=== PATIENT | male | born 1950 | race Caucasian/White ===

== ENCOUNTER 2020-05-26 10:35 | Outpatient (REF) | payer MEDICARE, SELFPAY ==
[2020-05-26 14:40] LABS: Glucose Urine UA >=1000 MG/DL (NEG); Leukocyte Esterase Urine NEG (NEG); Nitrite Urine NEG (NEG); PH 5.5 (5.0-8.0); Urine Blood NEG (NEG); Urine Ketones NEG (NEG); Urine Protein NEG (NEG-TRACE)
[2020-05-26 14:42] LABS: Appearance Urine CLEAR; Color Urine STRAW
[2020-05-26 14:50] LABS: RBC Urine 0 /HPF (0); WBC Urine 0 /HPF (0-4)
[2020-05-26 15:25] LABS: Alanine Aminotransferase 63 U/L (0-40); Albumin Level 4.3 g/dL (3.5-5.0); Alkaline Phosphatase 109 U/L (39-117); Anion Gap 19 (12-20); Aspartate Amino Transferase 47 U/L (5-37); Bilirubin Total 0.7 mg/dL (0.0-1.0); Blood Urea Nitrogen 24 mg/dL (9-16); Calcium 8.9 mg/dL (8.4-10.2); Carbon Dioxide 22 mmol/L (22-29); Chloride 104 mmol/L (96-108); Estimated Glomerular Filt Rate 53; Glucose Random 212 mg/dL (60-115); Potassium 3.7 mmol/l (3.3-5.1); Sodium 141 mmol/L (135-145)
[2020-05-26 15:30] LABS: Creatinine Urine 12.24 mg/dL; Microalbum/Creatinine Ratio Ur 473.8 ug/mg cr
== END 2020-05-26 10:36 | disposition home or self-care (01) ==
LOC: HO.HMGCLDS 10:35
PROVIDERS: PCP Internal Medicine; Visit Provider Internal Medicine
DX: E11.65 Type 2 diabetes mellitus with hyperglycemia (principal)
CPT/HCPCS: 80053; 81001; 82043

== ENCOUNTER 2020-09-02 09:31 | Outpatient (REF) | payer MEDICARE, SELFPAY ==
[2020-09-02 10:46] LABS: Glucose Urine UA >=1000 MG/DL (NEG); Leukocyte Esterase Urine NEG (NEG); Nitrite Urine NEG (NEG); Urine Blood TRACE (NEG); Urine Ketones NEG (NEG); Urine Protein 1+ MG/DL (NEG-TRACE)
[2020-09-02 10:47] LABS: Appearance Urine CLEAR; Color Urine YELLOW
[2020-09-02 10:55] LABS: MANUAL DIFF FLAG NO
[2020-09-02 10:57] LABS: Basophils Absolute Auto 0.1 X10*3/uL (0.0-0.2); Basophils Percent Auto 0.9 % (0-2); Eosinophils Absolute Auto 0.3 X10*3/uL (0.0-0.4); Eosinophils Percent Auto 4.6 % (0-4); Hematocrit 48.6 % (42-52); Hemoglobin 16.6 g/dl (14.0-18.0); Imm Gran Abs Auto 0.02 X10*3/uL (0.00-0.03); Imm Gran Pct Auto 0.3 % (0.0-0.4); Lymphocytes Percent Auto 29.3 % (20-40); Mean Corpuscular HGB Conc 34.2 g/dl (31.0-36.0); Mean Corpuscular Hemoglobin 30.5 pg (27.0-33.0); Mean Corpuscular Volume 89.3 fL (80-98); Mean Platelet Volume 11.9 fL (9.4-12.4); Monocytes Absolute Auto 0.6 X10*3/uL (0.1-1.2); Monocytes Percent Auto 8.7 % (2-11); Neutrophils Absolute Auto 3.9 X10*3/uL (2.0-8.3); Neutrophils Percent Auto 56.2 % (45-73); Platelet Count 135 X10*3/uL (160-400); Red Blood Count 5.44 X10*6/uL (4.60-5.80); Red Cell Distribution Width 13.4 % (11.0-16.0); White Blood Count 6.9 X10*3/uL (4.8-10.8)
[2020-09-02 11:01] LABS: RBC Urine 0-2 /HPF (0); WBC Urine 0-2 /HPF (0-4)
[2020-09-02 11:26] LABS: Estimated Average Glucose 177 mg/dL; Hemoglobin A1c % 7.8 %
[2020-09-02 11:32] LABS: Alanine Aminotransferase 53 U/L (0-40); Albumin Level 4.1 g/dL (3.5-5.0); Alkaline Phosphatase 101 U/L (39-117); Anion Gap 13 (12-20); Aspartate Amino Transferase 31 U/L (5-37); Bilirubin Total 0.8 mg/dL (0.0-1.0); Blood Urea Nitrogen 26 mg/dL (9-16); Calcium 9.1 mg/dL (8.4-10.2); Carbon Dioxide 23 mmol/L (22-29); Chloride 108 mmol/L (96-108); Cholesterol 154 mg/dL; Estimated Glomerular Filt Rate 56; Glucose Fasting 155 mg/dL (60-99); HDL Cholesterol 29 mg/dL; LDL Cholesterol Calculated 73 mg/dl; Potassium 4.1 mmol/L (3.3-5.1); Sodium 140 mmol/L (135-145); Total Protein 6.3 g/dL (6.5-8.0); Triglycerides 260 mg/dL
[2020-09-02 11:41] LABS: Creatinine Urine 82.85 mg/dL; Microalbum/Creatinine Ratio Ur 561.2 ug/mg cr
== END 2020-09-02 09:32 | disposition home or self-care (01) ==
LOC: HO.LAB 09:31
PROVIDERS: PCP Internal Medicine; Visit Provider Internal Medicine
DX: E11.65 Type 2 diabetes mellitus with hyperglycemia (principal)
CPT/HCPCS: 36415; 80053; 80061; 81001; 82043; 83036; 85025

== ENCOUNTER 2021-11-17 07:26 | Outpatient (REF) | payer MEDICARE, SELFPAY ==
[2021-11-17 11:04] LABS: MANUAL DIFF FLAG NO
[2021-11-17 11:21] LABS: Basophils Absolute Auto 0.1 X10*3/uL (0.0-0.2); Basophils Percent Auto 0.8 % (0-2); Eosinophils Absolute Auto 0.3 X10*3/uL (0.0-0.4); Hematocrit 49.1 % (42.0-52.0); Hemoglobin 15.9 g/dl (14.0-18.0); Imm Gran Abs Auto 0.01 X10*3/uL (0.00-0.03); Imm Gran Pct Auto 0.1 % (0.0-0.4); Lymphocytes Absolute Auto 1.4 X10*3/uL (1.2-4.9); Lymphocytes Percent Auto 20.4 % (20-40); Mean Corpuscular HGB Conc 32.4 g/dl (31.0-36.0); Mean Corpuscular Hemoglobin 29.9 pg (27.0-33.0); Mean Corpuscular Volume 92.5 fL (80.0-98.0); Mean Platelet Volume 12.8 fL (9.4-12.4); Monocytes Absolute Auto 0.6 X10*3/uL (0.1-1.2); Monocytes Percent Auto 9.1 % (2-11); Neutrophils Absolute Auto 4.6 x10*3/uL (2.0-8.3); Neutrophils Percent Auto 65.6 % (45-73); Platelet Count 115 X10*3/uL (160-400); Red Blood Count 5.31 X10*6/uL (4.60-5.80); Red Cell Distribution Width 14.8 % (11.0-16.0); White Blood Count 7.1 X10*3/uL (4.8-10.8)
[2021-11-17 11:34] LABS: Alanine Aminotransferase 46 U/L (0-40); Albumin Level 4.1 g/dL (3.5-5.0); Alkaline Phosphatase 87 U/L (39-117); Anion Gap 13 (12-20); Aspartate Amino Transferase 32 U/L (5-37); Bilirubin Total 0.9 mg/dL (0.0-1.0); Blood Urea Nitrogen 22 mg/dL (9-16); Calcium 9.7 mg/dL (8.4-10.2); Carbon Dioxide 28 mmol/L (22-29); Chloride 105 mmol/L (96-108); Cholesterol 159 mg/dL; Estimated Glomerular Filt Rate 52; Glucose Fasting 156 mg/dL (60-99); HDL Cholesterol 34 mg/dL; LDL Cholesterol Calculated 74 mg/dl; Potassium 4.1 mmol/L (3.3-5.1); Sodium 142 mmol/L (135-145); Total Protein 6.7 g/dL (6.5-8.0); Triglycerides 255 mg/dL
[2021-11-17 11:47] LABS: Creatinine Urine 12.99 mg/dL; Microalbum/Creatinine Ratio Ur 477.2 ug/mg cr
[2021-11-17 11:47] LABS: Estimated Average Glucose 154 mg/dL
[2021-11-17 11:57] LABS: Prostate Specific Antigen 0.88 ng/mL (<0.05-4.0); Thyroid Stimulating Hormone 3.41 uIU/mL (0.32-4.0); Vitamin D 25-OH Total 33.6 ng/mL (>30)
== END 2021-11-17 07:27 | disposition home or self-care (01) ==
LOC: HO.HMGCLDS 07:26
PROVIDERS: Visit Provider Internal Medicine
DX: E11.65 Type 2 diabetes mellitus with hyperglycemia (principal); I25.10 Atherosclerotic heart disease of native coronary artery without angina pectoris; I50.9 Heart failure, unspecified; I48.11 Longstanding persistent atrial fibrillation; Z12.5 Encounter for screening for malignant neoplasm of prostate
CPT/HCPCS: 36415; 80053; 80061; 82043; 82306; 83036; 84153; 84443; 85025

== ENCOUNTER 2022-06-21 08:01 | Outpatient (REF) | payer MEDICARE, SELFPAY ==
[2022-06-21 11:23] LABS: MANUAL DIFF FLAG NO
[2022-06-21 11:34] LABS: Appearance Urine Clear; Color Urine Yellow; Glucose Urine UA >=1000 mg/dL (Negative); Leukocyte Esterase Urine Negative (Negative); Nitrite Urine Negative (Negative); PH 6.5 (5.0-9.0); Specific Gravity - Urine 1.015 (1.005-1.025); UMIC TRIGGER UA YES; Urine Blood Negative (Negative); Urine Ketones Negative (Negative); Urine Protein 30 (1+) mg/dL (Neg-Trace)
[2022-06-21 11:35] LABS: Basophils Absolute Auto 0.1 X10*3/uL (0.0-0.2); Basophils Percent Auto 1.3 % (0-2); Eosinophils Absolute Auto 0.3 X10*3/uL (0.0-0.4); Eosinophils Percent Auto 3.7 % (0-4); Hematocrit 50.6 % (42.0-52.0); Hemoglobin 16.7 g/dl (14.0-18.0); Imm Gran Abs Auto 0.01 X10*3/uL (0.00-0.03); Imm Gran Pct Auto 0.1 % (0.0-0.4); Lymphocytes Absolute Auto 1.9 X10*3/uL (1.2-4.9); Lymphocytes Percent Auto 26.4 % (20-40); Mean Corpuscular Hemoglobin 30.1 pg (27.0-33.0); Mean Corpuscular Volume 91.3 fL (80.0-98.0); Mean Platelet Volume 12.6 fL (9.4-12.4); Monocytes Absolute Auto 0.6 X10*3/uL (0.1-1.2); Monocytes Percent Auto 8.3 % (2-11); Neutrophils Absolute Auto 4.2 x10*3/uL (2.0-8.3); Neutrophils Percent Auto 60.2 % (45-73); Platelet Count 143 X10*3/uL (160-400); Red Blood Count 5.54 X10*6/uL (4.60-5.80); Red Cell Distribution Width 14.1 % (11.0-16.0)
[2022-06-21 11:40] LABS: Bacteria Urine None Seen (None Seen); Hyaline Casts Urine 0-2 /LPF (0-2); RBC Urine 0-2 /HPF (0-2); Squamous Epithelial Cell Urine 0-2 /HPF (0-2); WBC Urine 0-5 /HPF (0-5)
[2022-06-21 11:41] LABS: Estimated Average Glucose 166 mg/dL; Hemoglobin A1c % 7.4 %
[2022-06-21 12:32] LABS: Alanine Aminotransferase 47 U/L (0-40); Albumin Level 4.3 g/dL (3.5-5.0); Anion Gap 13 (12-20); Aspartate Amino Transferase 33 U/L (5-37); Bilirubin Total 0.9 mg/dL (0.0-1.0); Blood Urea Nitrogen 27 mg/dL (9-16); Calcium 9.6 mg/dL (8.4-10.2); Carbon Dioxide 25 mmol/L (22-29); Chloride 107 mmol/L (96-108); Cholesterol 159 mg/dL; Estimated Glomerular Filt Rate 48; Glucose Fasting 170 mg/dL (60-99); HDL Cholesterol 32 mg/dL; LDL Cholesterol Calculated 73 mg/dl; Potassium 4.1 mmol/L (3.3-5.1); Sodium 141 mmol/L (135-145); Total Protein 6.7 g/dL (6.5-8.0); Triglycerides 273 mg/dL
[2022-06-21 12:39] LABS: Microalbum/Creatinine Ratio Ur 381.8 ug/mg cr
[2022-06-21 12:42] LABS: Alkaline Phosphatase 95 U/L (39-117)
== END 2022-06-21 08:02 | disposition home or self-care (01) ==
LOC: HO.HMGCLDS 08:01
PROVIDERS: PCP Internal Medicine; Visit Provider Internal Medicine
DX: E11.65 Type 2 diabetes mellitus with hyperglycemia (principal); I50.9 Heart failure, unspecified; I48.11 Longstanding persistent atrial fibrillation; I25.10 Atherosclerotic heart disease of native coronary artery without angina pectoris
CPT/HCPCS: 36415; 80053; 80061; 81001; 82043; 83036; 85025

== ENCOUNTER 2022-12-18 08:10 | Outpatient (REF) | payer MEDICARE, SELFPAY ==
[2022-12-18 11:15] LABS: MANUAL DIFF FLAG NO
[2022-12-18 11:28] LABS: Estimated Average Glucose 157 mg/dL; Hemoglobin A1c % 7.1 %
[2022-12-18 11:30] LABS: Appearance Urine Clear; Color Urine Yellow; Glucose Urine UA >=1000 mg/dL (Negative); Leukocyte Esterase Urine Negative (Negative); Nitrite Urine Negative (Negative); PH 5.5 (5.0-9.0); Specific Gravity - Urine 1.025 (1.005-1.025); UMIC TRIGGER UA YES; Urine Blood Trace (Negative); Urine Ketones Negative (Negative); Urine Protein 100 (2+) mg/dL (Neg-Trace)
[2022-12-18 11:33] LABS: Basophils Absolute Auto 0.1 X10*3/uL (0.0-0.2); Eosinophils Absolute Auto 0.3 X10*3/uL (0.0-0.4); Eosinophils Percent Auto 3.8 % (0-4); Hematocrit 50.9 % (42.0-52.0); Hemoglobin 16.6 g/dl (14.0-18.0); Imm Gran Abs Auto 0.02 X10*3/uL (0.00-0.03); Imm Gran Pct Auto 0.3 % (0.0-0.4); Lymphocytes Absolute Auto 1.6 X10*3/uL (1.2-4.9); Lymphocytes Percent Auto 23.2 % (20-40); Mean Corpuscular HGB Conc 32.6 g/dl (31.0-36.0); Mean Corpuscular Hemoglobin 30.4 pg (27.0-33.0); Mean Corpuscular Volume 93.2 fL (80.0-98.0); Mean Platelet Volume 12.8 fL (9.4-12.4); Monocytes Absolute Auto 0.6 X10*3/uL (0.1-1.2); Monocytes Percent Auto 8.4 % (2-11); Neutrophils Absolute Auto 4.4 x10*3/uL (2.0-8.3); Neutrophils Percent Auto 63.3 % (45-73); Platelet Count 118 X10*3/uL (160-400); Red Blood Count 5.46 X10*6/uL (4.60-5.80); Red Cell Distribution Width 14.7 % (11.0-16.0)
[2022-12-18 11:36] LABS: Bacteria Urine None Seen (None Seen); Hyaline Casts Urine 0-2 /LPF (0-2); RBC Urine 0-2 /HPF (0-2); Squamous Epithelial Cell Urine 0-2 /HPF (0-2); WBC Urine 0-5 /HPF (0-5)
[2022-12-18 12:03] LABS: Alanine Aminotransferase 41 U/L (0-40); Albumin Level 4.1 g/dL (3.5-5.0); Alkaline Phosphatase 92 U/L (39-117); Anion Gap 11 (12-20); Aspartate Amino Transferase 31 U/L (5-37); Bilirubin Total 0.9 mg/dL (0.0-1.0); Blood Urea Nitrogen 30 mg/dL (9-16); Calcium 9.7 mg/dL (8.4-10.2); Carbon Dioxide 31 mmol/L (22-29); Chloride 107 mmol/L (96-108); Cholesterol 154 mg/dL; Estimated Glomerular Filt Rate 52; Glucose Fasting 160 mg/dL (60-99); HDL Cholesterol 34 mg/dL; LDL Cholesterol Calculated 68 mg/dl; Potassium 4.7 mmol/L (3.3-5.1); Sodium 144 mmol/L (135-145); Total Protein 6.8 g/dL (6.5-8.0); Triglycerides 264 mg/dL
[2022-12-18 12:14] LABS: Creatinine Urine 79.04 mg/dL; Microalbum/Creatinine Ratio Ur 598.4 ug/mg cr
== END 2022-12-18 08:11 | disposition home or self-care (01) ==
LOC: HO.HMGCLDS 08:10
PROVIDERS: PCP Internal Medicine; Visit Provider Internal Medicine
DX: E11.65 Type 2 diabetes mellitus with hyperglycemia (principal); I25.10 Atherosclerotic heart disease of native coronary artery without angina pectoris; I50.9 Heart failure, unspecified; I48.11 Longstanding persistent atrial fibrillation
CPT/HCPCS: 36415; 80053; 80061; 81001; 82043; 83036; 85025

== ENCOUNTER 2023-03-30 08:28 | Outpatient (REF) | payer MEDICARE, SELFPAY ==
[2023-03-30 11:14] LABS: MANUAL DIFF FLAG NO
[2023-03-30 11:29] LABS: Appearance Urine Clear; Color Urine Yellow; Glucose Urine UA >=1000 mg/dL (Negative); Leukocyte Esterase Urine Negative (Negative); Nitrite Urine Negative (Negative); Specific Gravity - Urine 1.025 (1.005-1.025); UMIC TRIGGER UA YES; Urine Blood Trace (Negative); Urine Ketones Negative (Negative); Urine Protein 300 (3+) mg/dL (Neg-Trace)
[2023-03-30 11:33] LABS: Bacteria Urine None Seen (None Seen); Hyaline Casts Urine 0-2 /LPF (0-2); RBC Urine 0-2 /HPF (0-2); Squamous Epithelial Cell Urine 0-2 /HPF (0-2); WBC Urine 0-5 /HPF (0-5)
[2023-03-30 11:42] LABS: Basophils Percent Auto 0.5 % (0-2); Eosinophils Absolute Auto 0.6 X10*3/uL (0.0-0.4); Eosinophils Percent Auto 6.5 % (0-4); Hematocrit 50.8 % (42.0-52.0); Hemoglobin 16.7 g/dl (14.0-18.0); Imm Gran Abs Auto 0.02 X10*3/uL (0.00-0.03); Imm Gran Pct Auto 0.2 % (0.0-0.4); Lymphocytes Absolute Auto 1.2 X10*3/uL (1.2-4.9); Lymphocytes Percent Auto 13.6 % (20-40); Mean Corpuscular HGB Conc 32.9 g/dl (31.0-36.0); Mean Corpuscular Hemoglobin 30.7 pg (27.0-33.0); Mean Corpuscular Volume 93.4 fL (80.0-98.0); Mean Platelet Volume 12.9 fL (9.4-12.4); Monocytes Absolute Auto 0.8 X10*3/uL (0.1-1.2); Monocytes Percent Auto 8.8 % (2-11); Neutrophils Absolute Auto 6.3 x10*3/uL (2.0-8.3); Neutrophils Percent Auto 70.4 % (45-73); Platelet Count 120 X10*3/uL (160-400); Red Blood Count 5.44 X10*6/uL (4.60-5.80); Red Cell Distribution Width 14.8 % (11.0-16.0); White Blood Count 8.9 X10*3/uL (4.8-10.8)
[2023-03-30 12:08] LABS: Alanine Aminotransferase 26 U/L (0-40); Albumin Level 4.2 g/dL (3.5-5.0); Alkaline Phosphatase 94 U/L (39-117); Anion Gap 13 (12-20); Aspartate Amino Transferase 26 U/L (5-37); Bilirubin Total 0.8 mg/dL (0.0-1.0); Blood Urea Nitrogen 21 mg/dL (9-16); Carbon Dioxide 26 mmol/L (22-29); Chloride 107 mmol/L (96-108); Estimated Glomerular Filt Rate > 60; Glucose Fasting 125 mg/dL (60-99); Potassium 4.2 mmol/L (3.3-5.1); Sodium 142 mmol/L (135-145)
[2023-03-30 12:26] LABS: Estimated Average Glucose 123 mg/dL; Hemoglobin A1c % 5.9 % (<6.0)
[2023-03-30 13:21] LABS: Creatinine Urine 94.44 mg/dL; Microalbum/Creatinine Ratio Ur 934.9 ug/mg cr (<30)
== END 2023-03-30 08:29 | disposition home or self-care (01) ==
LOC: HO.HMGCLDS 08:28
PROVIDERS: PCP Internal Medicine; Visit Provider Internal Medicine
DX: E11.29 Type 2 diabetes mellitus with other diabetic kidney complication (principal); I50.9 Heart failure, unspecified; I25.10 Atherosclerotic heart disease of native coronary artery without angina pectoris; I48.11 Longstanding persistent atrial fibrillation
CPT/HCPCS: 36415; 80053; 81001; 82043; 82570; 83036; 85025

== ENCOUNTER 2024-01-22 08:01 | Outpatient (REF) | payer MEDICARE, SELFPAY ==
[2024-01-22 10:10] LABS: MANUAL DIFF FLAG NO
[2024-01-22 10:15] LABS: Appearance Urine Clear; Color Urine Yellow; Glucose Urine UA >=1000 mg/dL (Negative); Leukocyte Esterase Urine Negative (Negative); Nitrite Urine Negative (Negative); PH 6.5 (5.0-9.0); Specific Gravity - Urine 1.015 (1.005-1.025); UMIC TRIGGER UA YES; Urine Blood Negative (Negative); Urine Ketones Negative (Negative); Urine Protein Trace mg/dL (Neg-Trace)
[2024-01-22 10:21] LABS: Bacteria Urine None Seen (None Seen); Hyaline Casts Urine 0-2 /LPF (0-2); RBC Urine 0-2 /HPF (0-2); Squamous Epithelial Cell Urine 0-2 /HPF (0-2); WBC Urine 0-5 /HPF (0-5)
[2024-01-22 10:23] LABS: Basophils Absolute Auto 0.1 X10*3/uL (0.0-0.2); Basophils Percent Auto 0.8 % (0-2); Eosinophils Absolute Auto 0.4 X10*3/uL (0.0-0.4); Eosinophils Percent Auto 4.7 % (0-4); Hematocrit 48.3 % (42.0-52.0); Hemoglobin 16.1 g/dl (14.0-18.0); Imm Gran Abs Auto 0.03 X10*3/uL (0.00-0.03); Imm Gran Pct Auto 0.4 % (0.0-0.4); Lymphocytes Absolute Auto 1.7 X10*3/uL (1.2-4.9); Lymphocytes Percent Auto 22.4 % (20-40); Mean Corpuscular HGB Conc 33.3 g/dl (31.0-36.0); Mean Corpuscular Hemoglobin 30.5 pg (27.0-33.0); Mean Corpuscular Volume 91.5 fL (80.0-98.0); Mean Platelet Volume 12.6 fL (9.4-12.4); Monocytes Absolute Auto 0.6 X10*3/uL (0.1-1.2); Monocytes Percent Auto 7.9 % (2-11); Neutrophils Absolute Auto 4.7 x10*3/uL (2.0-8.3); Neutrophils Percent Auto 63.8 % (45-73); Platelet Count 139 X10*3/uL (160-400); Red Blood Count 5.28 X10*6/uL (4.60-5.80); Red Cell Distribution Width 14.8 % (11.0-16.0); White Blood Count 7.4 X10*3/uL (4.8-10.8)
[2024-01-22 10:35] LABS: Estimated Average Glucose 137 mg/dL; Hemoglobin A1c % 6.4 % (<6.0)
[2024-01-22 11:02] LABS: Creatinine Urine 32.71 mg/dL; Microalbum/Creatinine Ratio Ur 434.1 ug/mg cr (<30)
[2024-01-22 11:12] LABS: Alanine Aminotransferase 25 U/L (0-40); Albumin Level 4.2 g/dL (3.5-5.0); Alkaline Phosphatase 91 U/L (39-117); Anion Gap 12 (12-20); Aspartate Amino Transferase 23 U/L (5-37); Bilirubin Total 0.9 mg/dL (0.0-1.0); Blood Urea Nitrogen 21 mg/dL (9-16); Calcium 10.2 mg/dL (8.4-10.2); Carbon Dioxide 27 mmol/L (22-29); Chloride 108 mmol/L (96-108); Cholesterol 136 mg/dL (<200); Estimated Glomerular Filt Rate 50; Glucose Fasting 133 mg/dL (60-99); HDL Cholesterol 30 mg/dL (>40); LDL Cholesterol Calculated 73 mg/dL (<100); Sodium 143 mmol/L (135-145); Thyroid Stimulating Hormone 1.71 uIU/mL (0.32-4.0); Total Protein 7.1 g/dL (6.5-8.0); Triglycerides 169 mg/dL (<150)
[2024-01-23 09:13] LABS: Lyme Abs Screen <0.90 index
== END 2024-01-22 08:02 | disposition home or self-care (01) ==
LOC: HO.HMGCLDS 08:01
PROVIDERS: PCP Internal Medicine; Visit Provider Internal Medicine
DX: I50.9 Heart failure, unspecified (principal); E11.65 Type 2 diabetes mellitus with hyperglycemia; I25.10 Atherosclerotic heart disease of native coronary artery without angina pectoris; I48.11 Longstanding persistent atrial fibrillation
CPT/HCPCS: 36415; 80053; 80061; 81001; 82043; 82570; 83036; 84443; 85025; 86617; 86618

== ENCOUNTER 2024-10-01 09:45 | Outpatient (AMB) | payer MEDICARE, MEDICAID, SELFPAY ==
--- NOTE | 2024-10-01 09:43 | A.OFFPC_ITS ---
Vital Signs 10/01/24 09:53 Height 5 ft 6.25 in Weight 230 lb BMI 36.8 BP 134/62 Blood Pressure Location Rt brachial Respiration 18 Pulse 83 Pulse Source Pulse Oximeter Temp 97.1 F Temp Source Temporal Artery Scan Pulse Oximetry (%) 99 Oxygen Delivery Method Room Air Intake Visit Reasons: 6 month follow up Allergies No Known Allergies Allergy (Verified 10/01/24 10:41) Medication List - Last Reconciled 10/01/24 by Ronna Casey PA-C allopurinol 300 mg PO DAILY apixaban (Eliquis) 5 mg PO BID aspirin 81 mg PO DAILY betamethasone dipropionate 0.05% 1 appl topical DAILY PRN dulaglutide (Trulicity) 4.5 mg (0.5 mL) subcut QWEEK empagliflozin (Jardiance) 25 mg PO DAILY furosemide 80 mg PO DAILY gabapentin 600 mg (2 x 300 mg) PO TID 90 days losartan 100 mg PO DAILY metoprolol tartrate 100 mg PO DAILY nitroglycerin 0.4 mg sublingual Q5M PRN pravastatin 80 mg PO DAILY [facility] Medical History (Updated 10/01/24 @ 10:49 by Ronna Casey PA-C) Restless leg syndrome Severe obesity with body mass index (BMI) of 36.0 to 36.9 with serious comorbidity Follow-up exam, 3-6 months since previous exam History of pneumonia Hypotestosteronism Gout Coronary artery disease Obstructive sleep apnea Hypertension Mild hypercholesterolemia Type 2 diabetes mellitus with hemoglobin A1c goal of less than 7.0% Atrial fibrillation CHF (congestive heart failure) Surgical History History of colonoscopy (~11/2019) History of coronary artery bypass graft Physical exam (Primary Care) Vital Signs: Last Vital Signs Temp 97.1 F 10/01/24 09:53 BP 134/62 10/01/24 09:53 Care Plan Goal for BP management: <130/80 at goal BMI result Body Mass Index 36.8 BMI Assessment/Plan discussion: High BMI High, discussed plan: lifestyle, weight reduction, dietary, physical activity and alcohol moderation Coding Level of Care Code New Pt Level 4 (59962) Complex EM visit Add On G2211 Diagnoses Follow-up exam, 3-6 months since previous exam Z09 Gout M10.9 Coronary artery disease I25.10 Obstructive sleep apnea G47.33 Hypotestosteronism E34.9 Hypertension I10 Mild hypercholesterolemia E78.00 Type 2 diabetes mellitus with hemoglobin A1c goal of less than 7.0% E11.9 Atrial fibrillation I48.91 CHF (congestive heart failure) I50.9 Severe obesity with body mass index (BMI) of 36.0 to 36.9 with serious comorbidity E66.01; Z68.36 Restless leg syndrome G25.81 Assessment & Plan Assessment & Plan (1) Follow-up exam, 3-6 months since previous exam: Code(s): Z09 - Encounter for follow-up examination after completed treatment for conditions other than malignant neoplasm Category: Medical (2) Gout: Code(s): M10.9 - Gout, unspecified Category: Medical Plan: Patient currently on allopurinol 300 mg daily. Denies any recent flares. Condition is chronic and stable continue to monitor (3) Coronary artery disease: Code(s): I25.10 - Atherosclerotic heart disease of [place] coronary artery without angina pectoris Category: Medical Plan: Status post CABG at [facility] over 20 years. Has not followed up since then. Will refer back to [facility] Dr. Jarrell Batista. Patient currently on furosemide 80 mg daily, Eliquis 5 mg p.o. b.i.d., aspirin 81 mg daily, losartan 100 mg daily, metoprolol 100 mg daily, nitroglycerin 0.4 mg subQ every 5 minutes prn, pravastatin 80 mg daily. Condition is chronic and stable continue to monitor. (4) Obstructive sleep apnea: Comment: On nasal CPAP Code(s): G47.33 - Obstructive sleep apnea (adult) (pediatric) Category: Medical Plan: Condition is chronic and stable continue to monitor. (5) Hypotestosteronism: Code(s): E34.9 - Endocrine disorder, unspecified Category: Medical Plan: Will recheck testosterone levels per patient request. Condition is chronic and stable continue to monitor. (6) Hypertension: Code(s): I10 - Essential (primary) hypertension Category: Medical Plan: Status post CABG at [facility] over 20 years. Has not followed up since then. Will refer back to [facility] Dr. Jarrell Batista. Patient currently on furosemide 80 mg daily, Eliquis 5 mg p.o. b.i.d., aspirin 81 mg daily, losartan 100 mg daily, metoprolol 100 mg daily, nitroglycerin 0.4 mg subQ every 5 minutes prn, pravastatin 80 mg daily. Condition is chronic and stable continue to monitor. (7) Mild hypercholesterolemia: Code(s): E78.00 - Pure hypercholesterolemia, unspecified Category: Medical Plan: Patient currently on pravastatin 80 mg daily. Continuaion of pravastatin and dietary adjustments including the intake of healthy fats to manage lipid levels. Condition is chronic and stable continue to monitor. (8) Type 2 diabetes mellitus with hemoglobin A1c goal of less than 7.0%: Code(s): E11.9 - Type 2 diabetes mellitus without complications Category: Medical Plan: Last A1c level on 01/22/2024 was 6.4 at goal. Will continue current regimen with Trulicity weekly and Jardiance 25 mg daily. Condition is chronic and stable continue to monitor. (9) Atrial fibrillation: Code(s): I48.91 - Unspecified atrial fibrillation Category: Medical Plan: Status post CABG at [facility] over 20 years. Has not followed up since then. Will refer back to [facility] Dr. Jarrell Batista. Patient currently on furosemide 80 mg daily, Eliquis 5 mg p.o. b.i.d., aspirin 81 mg daily, losartan 100 mg daily, metoprolol 100 mg daily, nitroglycerin 0.4 mg subQ every 5 minutes prn, pravastatin 80 mg daily. Condition is chronic and stable continue to monitor. (10) CHF (congestive heart failure): Code(s): I50.9 - Heart failure, unspecified Category: Medical Plan: Maintain furosemide regimen to control fluid retention, monitoring renal function and electrolytes regularly. Status post CABG at [facility] over 20 years. Has not followed up since then. Will refer back to [facility] Dr. Jarrell Batista. Patient currently on furosemide 80 mg daily, Eliquis 5 mg p.o. b.i.d., aspirin 81 mg daily, losartan 100 mg daily, metoprolol 100 mg daily, nitroglycerin 0.4 mg subQ every 5 minutes prn, pravastatin 80 mg daily. Condition is chronic and stable continue to monitor. (11) Severe obesity with body mass index (BMI) of 36.0 to 36.9 with serious comorbidity: Code(s): E66.01 - Morbid (severe) obesity due to excess calories; Z68.36 - Body mass index [BMI] 36.0-36.9, adult Category: Medical Plan: Patient to improve his diet and exercise regimen. Condition is chronic and stable continue to monitor. (12) Restless leg syndrome: Code(s): G25.81 - Restless legs syndrome Category: Medical Plan: The gabapentin dosage will be increased to 600 mg three times daily due to insufficient efficacy at the current dose, staying within the maximum safe limits. Condition is chronic and stable continue to monitor. Plan Plan Patient was informed and verbally consented to the use of an ambient scribe for clinic note documentation during this visit. 1. Coronary Artery Disease A cardiology follow-up is recommended to ensure ongoing management post-CABG alongside current medications to manage heart disease effectively. 2. Gout - patient currently on allopurinol denies any recent flare-ups. Condition is chronic and stable continue to monitor. 3. Congestive Heart Failure Maintain furosemide regimen to control fluid retention, monitoring renal function and electrolytes regularly. 4. Hyperlipidemia Continuaion of pravastatin and dietary adjustments including the intake of healthy fats to manage lipid levels. 5. Type 2 Diabetes Mellitus Continue current diabetes management regimen with Trulicity and Jardiance for optimal blood sugar control. 6. Restless leg syndrome Will increase the patient's gabapentin 300 mg t.i.d. to 600 mg t.i.d.. Discussion Notes We discussed the patient?s issues with restless leg syndrome and decided to increase the gabapentin dosage to 600 mg three times daily for better symptom control. This decision was based on the patient?s previous experience with the medication and the lack of efficacy at the current dosage. We addressed his coronary artery disease with a recommendation to establish care with a bicycle i assembler at [facility] for comprehensive management post-CABG. The patient?s lipid levels and dietary intake were reviewed to maintain cardiovascular health, with a continued plan for the prescription of pravastatin. For type 2 diabetes mellitus, we agreed on continuing with Trulicity and Jardiance due to past effective control. Ongoing congestive heart failure management was emphasized with a confirmed need to continue furosemide to manage symptoms effectively. Orders: Orders Hemoglobin A1c Today Z00.00 - Encounter for general adult medical examination without abnormal findings TSH reflex Free T4 Today Z00.00 - Encounter for general adult medical examination without abnormal findings Lipid Panel Today Z00.00 - Encounter for general adult medical examination without abnormal findings Magnesium Today Z00.00 - Encounter for general adult medical examination without abnormal findings Liver Panel Today Z00.00 - Encounter for general adult medical examination without abnormal findings Vitamin B12 and Folate Today Z00.00 - Encounter for general adult medical examination without abnormal findings Microalbumin, Random (w Creat) Today E11.9 - Type 2 diabetes mellitus without complications Complete Blood Count Auto Diff Today Z00.00 - Encounter for general adult medical examination without abnormal findings Comprehensive Breese. Panel Fast Today Z00.00 - Encounter for general adult medical examination without abnormal findings C Reactive Protein Today Z00.00 - Encounter for general adult medical examination without abnormal findings Erythrocyte Sedimentation Rate Today Z00.00 - Encounter for general adult medical examination without abnormal findings Vitamin D 25-OH Total Today Z00.00 - Encounter for general adult medical examination without abnormal findings Testosterone, Total Today Z00.00 - Encounter for general adult medical examination without abnormal findings Referrals Cardiology Referral I48.91 - Unspecified atrial fibrillation, I50.9 - Heart failure, unspecified Medications: Changed From gabapentin 300 mg PO TID To gabapentin 600 mg (2 x 300 mg) PO TID 90 days 540 caps 1RF Discontinued losartan Discontinued Reason: Duplicate 100 mg PO DAILY 90 days 90 tabs 1RF Patient Instructions: Patient Instructions - Increase gabapentin dosage to 600 mg three times daily according to the new prescription instructions. - Follow up with the referred bicycle i assembler for ongoing heart care and potential additional management for coronary artery disease. - Maintain prescribed medication regimen for blood pressure, diabetes, and lipid levels. - Continue dietary modifications focusing on healthy fat intake to improve heart health. - Undergo recommended blood work fasting as discussed before the next appointment. - Return in six months for follow-up and further evaluation. - Contact the healthcare provider immediately if experiencing new or worsening symptoms. Scribe Plan - Not visible on output: History of Present Illness The patient is a 74-year-old male presenting for a six-month follow-up and management of multiple chronic conditions alongside medication adjustment for restless leg syndrome. [place] medical issues include type 2 diabetes mellitus, hyperlipidemia, essential hypertension, obstructive sleep apnea, and a history of coronary artery disease treated with CABG. Ongoing conditions such as atrial fibrillation were reported historically but are not currently symptomatic. The patient experiences congestive heart failure with fluid retention stabilized through diuretics. Gabapentin, initially prescribed to control restless leg syndrome and joint pain, has proven inadequate, prompting a request for dosage reassessment. Past interventions have included continuous positive airway pressure therapy for sleep apnea and diuretics for heart failure, while medications like losartan, metoprolol, and pravastatin address cardiovascular risks. His proactive management of diabetes involves Trulicity and Jardiance. Blood work from six months ago showed satisfactory results with minor deviations in lipid profile. Despite past pneumonia and discussions about AFib, there are no current respiratory issues, and efforts to enhance HDL levels through diet are ongoing. Social History - Functional status is proactive in seeking medical attention every six months. - Reports consumption of greens like spinach and brussels sprouts, indicative of dietary awareness. Review of Systems - Cardiovascular: Denies current chest pain or significant palpitations. Reports past atrial fibrillation episodes, currently asymptomatic. - Respiratory: Denies new onset of shortness of breath or exertional dyspnea. - Gastrointestinal: Denies black or bloody stools. Regular bowel movements. - Musculoskeletal: Reports ineffective current gabapentin treatment for joint pain and restless leg syndrome. - Neurological: Denies dizziness or other significant changes in neurological function. Physical Exam Appearance: Alert. Oriented X3. No acute distress. Head: Normal external exam. Normocephalic. Atraumatic. Eyes: Pupils are equal, round, and reactive to light. Extraocular movements intact. Conjunctiva and sclera normal. Eyelids normal. Ears: External auditory canal normal. Tympanic membranes normal. Throat: Pharynx normal. Uvula midline. Moist mucous membranes. Neck: Normal inspection. Neck supple. Full range of motion. No adenopathy. Thyroid Normal. No meningeal signs. No neck mass noted. Cardiovascular: Normal heart rate and rhythm. Heart sound normal. No murmurs noted. Pulses normal throughout. Respiratory: No respiratory distress. Painless inspiration. Breath sounds normal. No wheezes/rales/rhonchi noted. Chest nontender. No accessory muscle usage noted or decreased air movement noted. Abdomen: Soft and nontender. Bowel sounds normal in all 4 quadrants. No distention noted. No organomegaly noted. No visible injury noted. Back: No costovertebral angle tenderness. Full range of motion noted. Skin: Skin warm and dry. Normal skin color. Normal skin turgor. No rashes/lesions/lacerations noted. Extremities: No lower extremity edema. Extremities exhibit normal range of motion. Extremities nontender. Neuro: Oriented X 3. No motor deficit. No sensory deficit. Reflexes normal. Results - Labs from six months ago showed normal hemoglobin and hematocrit, BUN of 21, A1c of 6.4, triglycerides slightly elevated at 169, and HDL of 30. - Prostate exam in 2021 revealed normal levels.
[2024-10-01 09:53] VITALS: BP 134/62; PULSE 83; RESP 18; TEMP 36.2; O2SAT 99; BMI 36.8
--- OUTSIDE RECORDS SUMMARY | 2024-10-01 10:56 | XMS_ITS | Clinical Summary ---
Author Organization [facility] Address [address] [facility] [address] [place] [address] Care Team Providers Care Gang Saw Operator Name Role Phone Unavailable Primary Care Provider Unavailabl e Social History Tobacco Use Types Packs/Day Years Used Date Smoking Tobacco: Never Assessed Sex and Gender Information Value Date Recorded Sex Assigned at Male 05/15/2022 10:34 AM EDT Legal Sex Male 10:34 AM EDT Gender Identity Male 05/15/2022 10:34 AM EDT Sexual Orientation Straight 05/15/2022 10 :34 AM EDT Plan of Treatment Health Maintenance Due Date Last Done Comments CT Colonography 1948 Colonoscopy 1948 Colorectal Cancer Screening 1948 Depression Screening 1950 FIT DNA/Cologuard 1948 FIT 1948 FOBT 1948 Lipid Panel 1950 Sigmoidoscopy 1948 Alcohol/Substance Use Screening 1960 Tobacco Screening 1960 DTaP/Tdap/Td Vaccines (1 - Tdap) 1967 Pneumococcal Vaccine: 50+ Ye ars (1 of 1 - PCV) 1998 Zoster Vaccines (1 of 2) 1998 RSV Patients and Pa tients Aged 60 years or older (1 - 1-dose 75+ series) 2023 COVID-19 Vaccine ( - 2023-2 5 season) 2024 Influenza Vaccine (#1) 2024 HIB Vaccines Aged Out No longer eligi ble based on patient's age to complete this topic HPV Vaccines Aged Out No longer eligi ble based on patient's age to complete this topic Hepatitis A Vaccines Aged Out No long er eligible based on patient's age to complete this topic Hepatitis B Vaccines Aged Out No long er eligible based on patient's age to complete this topic IPV Vaccines Aged Out No longer eligi ble based on patient's age to complete this topic Meningococcal Vaccine Aged Out No rob dimitri eligible based on patient's age to complete this topic RSV under 20 months Aged Out No longe r eligible based on patient's age to complete this topic Rotavirus Vaccines Aged Out No longer eligible based on patient's age to complete this topic
--- OUTSIDE RECORDS SUMMARY | 2024-10-01 10:56 | XMS_ITS | Continuity of Care Document ---
Author Organization [facility] [address] [facility] [address] [place] [address] Phone [phone] Care Team Providers Care Polysomnographic Technologist Name Role Phone Juan Cheng M.D. Care Team Information Recei luis m [phone] Problems Active Problems Provider Date H/O: atrial fibrillation Gregory Piedra M.D. O nset: 06/06/2022 Hypercholesterolemia Gregory Piedra M.D. Onset : 06/06/2022 Diabetes mellitus Gregory Piedra M.D. Onset: 1 08/06/2021 H/O: gout Gregory Piedra M.D. Onset: Sleep apnea Gregory Piedra M.D. Onset: Erectile dysfunction Gregory Piedra M.D. Onset : 06/06/2022 Atrial fibrillation Gregory Piedra M.D. Onset: 06/06/2022 Asymptomatic coronary heart disease Gregory harp M.D. Onset: 06/06/2022 Social History Type Date Description Comments Sex Unknown Lives With Spouse ETOH Use Occasionally consumes alcoho l Tobacco Use Start: Unknown End: Unknown Patient is a former smoker Quit x 15 years Medications Active Medications SIG Qnty Indications Order ing Provider Date Dexcom G7 ReceiverDevice use for sugar reading dx e11.9 2units E11.9 Gregory Piedra M.D. 10/05/2022 Dexcom G7 SensorMisc use to check sugar dx e11.9 2units E11.9 Gregory Piedra M.D. 10/05/2022 Sildenafil [id number] Tablets take 1 tablet by mouth 30-60 minutes before planned sexual activity 10tabs Gregory Piedra M.D. 03/07/2022 Trulicity1.5mg/0.5ML Solution Pen-Inject inject 1.5mg subcutaneously every week 12units Gregory Piedra M.D. 03/06/2022 [id number] Tablets Take 1 tablet daily Juan Cheng M.D. Guzqtpjql23ua Tablets Take 1 tablet daily Juan Cheng M.D. Metoprolol Yuszxoyq353ec Tablets Take One Tablet Twice Daily With Food Juan Cheng M.D. Pravastatin Ryygrx43jd Tablets Take One Tablet Daily Juan Cheng M.D. Losartan Kvaoupdhh597wz Tablets Take One Tablet Daily Juan Cheng M.D. Tobdbedgg5mm Tablets Take Two Tablets Twice Daily Juan Cheng M.D. Aolnjfanqv38fs Tablets Take One Tablet By Mouth Every Day Juan Cheng M.D. Brjwjlj9gp Tablets Take 1 pill twice daily Juan Cheng M.D. Cyclobenzaprine XZM02uz Tablets Take One Tablet By Mouth AT Bedtime as Needed Juan Cheng M.D. Nitroglycerin0.4mg Tablets Sub Dissolve 1 Tablet Under The Tongue Every 5 Minutes as Needed For Chest Pain. DO Juan Cheng M.D. Vital Signs Date Vital Result Comment 06/06/2022 1:16pm BP Systolic 152 mmHg BP Diastolic 80 mmHg Heart Rate 43 /min Height 68 inches 5'8 Weight 233.00 lb BMI (Body Mass Index) 35.4 kg/m2 Results Test Acquired Date Facility Test Result H/L Range N ote Hemoglobin A1c 06/06/2022 Inhouse Hemoglobin A1c 7.7% Glucose Fingerstick 06/06/2022 Inhouse Glucose Fingerstick 167 Medical Devices Description No Information Available Encounters Type Date Location Provider Dx Diagnosis Office Visit 06/06/2022 1:00p Main Office Gregory Piedra M.D. E11.9 Type 2 diabetes mellitus without complications I25.89 Other forms of chron ic ischemic heart disease G47.30 Sleep apnea, unspeci fied I48.91 Unspecified atrial f ibrillation Assessments Date Code Description Provider 06/06/2022 E11.9 Type 2 diabetes mellitus without complications Gregory Piedra M.D. 06/06/2022 I25.89 Asymptomatic coronary heart disease Gregory Piedra M.D. 06/06/2022 G47.30 Sleep apnea Gregory Piedra M.D. 06/06/2022 I48.91 Atrial fibrillation Gregory hanley M.D. Plan of Treatment No Information Available Functional Status Description No Information Available Mental Status Description No Information Available Referrals Refer to Reason for Referral Status Appt Kostas e Gregory Piedra M.D. Created [address] [place] [address] Drive [address] [place] [address] [phone]
--- OUTSIDE RECORDS SUMMARY | 2024-10-01 10:56 | XMS_ITS ---
Author Organization [facility] Address [address] [place] [id number] Care Team Providers Care Director Of Medical Services Name Role Phone Prosper (RETIRED) Juan SOLOMON Primary Care Provid er Unavailable Juan Barrios [phone] Encounters Encounter Location Date Provider Diagnosis [facility] [address] [place] [id number] 08/13/2024 Juan Barrios Plan Of Treatment Next Appt Details Provider Name:Juan Barrios , 11/19/2024 10:30:00 AM, [address] [place] [address] , [place], [place], [id number], Progress Notes * KI LATHAM ADOB: (73 yo M)Acc No.[id number]:08/13/2024 Patient:?KI LATHAM :1950???Age:73 Y???Sex:Male Address:[address] [place] [id number] * true * Date:? Generated for Printi ng/Octavio/eTransmitting on:?10/01/2024 10:56 AM EDT
--- OUTSIDE RECORDS SUMMARY | 2024-10-01 10:56 | XMS_ITS ---
Author Organization [facility] Address [address] [place] [address] Care Team Providers Care Activities Assistant Name Role Phone Prosper (RETIRED) Juan SOLOMON Primary Care Provid er Unavailable Juan Barrios Unavailable [phone] REASON FOR VISIT patient presents today fo colon recall Medications Medication SIG (Take, Route, Frequency, Duration) Notes Start Date End Date Status Jardiance 25 MG 1 tablet Orally Once a day for 30 day(s) Active Trulicity 4.5 MG/0.5ML Subcutaneous for 84 Days Active Gabapentin 300 MG Oral for 90 Days Active Betamethasone Dipropionate 0.05 % 1 application Externally Once a day Active Losartan Potassium 100 MG Oral for 90 Days Active Nitroglycerin 0.4 MG as directed Sublingual Active Aspir-81 81 MG 1 tablet Orally Once a day Active Metoprolol Tartrate 100 MG 1 tablet with food Orally Twice a day for 30 day(s) Active Pravastatin Sodium 80 MG 1 tablet Orally Once a day Active Eliquis 5 MG as directed Orally Active Furosemide 80 MG 1 tablet Orally Once a day Active Allopurinol 300 MG 1 tablet Orally Once a day Active Vital Signs Blood pressure systolic 111 mm Hg 08/12/19 25 Blood pressure diastolic 11 mm Hg 025 Height 66 in 08/12/2024 Weight 229 lbs 08/12/2024 BMI 36.96 kg/m2 08/12/2024 Encounters Encounter Location Date Provider Diagnosis [facility] [address] [place] [address] 08/12/2024 Juan Barrios Hx of adenomatous colonic polyps Z86.010 ; Preprocedural examination Z01.818 and Encounter for screening for malignant neoplasm of colon Z12.11 Assessments Encounter Date Diagnosis (ICD Code) Assessment Notes Treatment Notes Treatment Clinical Notes Section Notes 08/12/2024 Hx of adenomatous colonic polyps (ICD-10 - Z86.010) Overall, Everardo appears well. Given his previous history of tubular adenomas and his last colonoscopy being over 5 years ago, I did recommend a followup colonoscopy for further screening purposes. We did review the rationale for this in regard to colorectal cancer prevention and/or early detection. Full consent was obtained for this, including risks of bleeding and perforation. He will have a PAT for the procedure and the procedure will be done with monitored anesthesia care. He was given the below instructions regarding adjustment of his medications for the procedure. Everardo was comfortable with this plan. Thank you again for allowing me to participate in Everardo's care. I shall continue to keep you advised of his progress. 08/12/2024 Preprocedural examination (ICD-10 - Z01.818) Overall, Everardo appears well. Given his previous history of tubular adenomas and his last colonoscopy being over 5 years ago, I did recommend a followup colonoscopy for further screening purposes. We did review the rationale for this in regard to colorectal cancer prevention and/or early detection. Full consent was obtained for this, including risks of bleeding and perforation. He will have a PAT for the procedure and the procedure will be done with monitored anesthesia care. He was given the below instructions regarding adjustment of his medications for the procedure. Everardo was comfortable with this plan. Thank you again for allowing me to participate in Everardo's care. I shall continue to keep you advised of his progress. 08/12/2024 Encounter for screening for malignant neoplasm of colon (ICD-10 - Z12.11) DO NOT TAKE TRULICITY FOR AT LEAST 7 DAYS BEFORE THE COLONOSCOPY DO NOT TAKE JARDIANCE FOR 3 DAYS BEFORE THE COLONOSCOPY DO NOT TAKE FUROSEMIDE ON THE DAY OF THE COLONOSCOPY DO NOT TAKE ELIQUIS FOR 3 DAYS BEFORE THE COLONOSCOPY DO NOT TAKE ASPIRIN ON THE MORNING OF THE COLONOSCOPY Overall, Everardo appears well. Given his previous history of tubular adenomas and his last colonoscopy being over 5 years ago, I did recommend a followup colonoscopy for further screening purposes. We did review the rationale for this in regard to colorectal cancer prevention and/or early detection. Full consent was obtained for this, including risks of bleeding and perforation. He will have a PAT for the procedure and the procedure will be done with monitored anesthesia care. He was given the below instructions regarding adjustment of his medications for the procedure. Everardo was comfortable with this plan. Thank you again for allowing me to participate in Everardo's care. I shall continue to keep you advised of his progress. Plan Of Treatment Treatment Notes Assessment Notes Encounter for screening for malignant neoplasm of colon DO NOT TAKE TRULICITY FOR AT LEAST 7 DAYS BEFORE THE COLONOSCOPY DO NOT TAKE JARDIANCE FOR 3 DAYS BEFORE THE COLONOSCOPY DO NOT TAKE FUROSEMIDE ON THE DAY OF THE COLONOSCOPY DO NOT TAKE ELIQUIS FOR 3 DAYS BEFORE THE COLONOSCOPY DO NOT TAKE ASPIRIN ON THE MORNING OF THE COLONOSCOPY Future Test Test Name Order Date COLONOSCOPY 08/12/2024 Next Appt Details Follow Up: prn, Reason: Provider Name:Juan Barrios , 11/19/2024 10:30:00 AM, [address] [place] [address], [phone], Progress Notes * KI LATHAM ADOB: (74 yo M)Acc No.[id number]:08/12/2024 Progress Notes Patient:?KI LATHAM A Provider:?Juan Barrios MD :1950???Age:73 Y???Sex:Male Kostas e:08/12/2024 Address:[address] [place], [place] [id number] Pcp:Juan Cheng (RETIRE D), DO Subjective: * Chief Complaints: * ???Patient presents today fo colon recall * HPI: ???incontinence:? I saw Everardo in the office today for evaluation of his personal history of tubular adenomas of the colon and need for colorectal cancer screening. ?I last saw Everardo in June of 2019, at which time he underwent a followup colonoscopy with removal of a tubular adenoma. He presently feels well. He enjoys a good appetite without any significant heartburn or dysphagia. He denies any change in bowel habits, hematochezia, nor melena. He denies abdominal pain, jaundice, nor unintentional weight loss. He denies any known family history of colon cancer. ?He reports that he has been feeling well in general and has not had any intervening cardiac issues since his bypass in 2003. He does not have a home planning consultant salesperson. * ROS:?General/Constitutional:?Change in appetite?denies.?Chills?denies.?Fatigue?denies.?Ophthalmologic:?Comments?all negative.?ENT:?Comments?all negative.?Respiratory:?hemoptysis?denies.?Cough?denies.?Cardiovascular:?Chest pain?denies.?Orthopnea?denies.?Gastrointestinal:?Comments?See HPI for details.?Genitourinary:?Hematuria?denies.?Dysuria?denies.?Musculoskeletal:?Painful joints?denies.?Weakness?denies.?Skin:?Itching?denies.?Rash?denies.?Neurologic:?Headache?denies.?Seizures?denies.?Psychiatric:?Comments?all negative.? * Medical History:? * Surgical History:?CABG as ab ove * Hospitalization/Major Diagno stic Procedure:?No Hospitalization History. * Family History:?Father: dece ased.?Mother: .? No family history of colorectal cancer. * Social History:?Tobacco Use:?Tobacco Use/Smoking?Are you a: nonsmoker.?Drugs/Alcohol:?Alcohol Screen?Points: 1, Interpretation: Negative.?Miscellaneous:?Marital status: . 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 ???Nonsmoker; no sig alcohol. * Medications:?TakingEliquis 5 MG Tablet as directed Orally Furosemide 80 MG Tablet 1 tablet Orally Once a dayAllopurinol 300 MG Tablet 1 tablet Orally Once a dayPravastatin Sodium 80 MG Tablet 1 tablet Orally Once a dayAspir-81 81 MG Tablet Delayed Release 1 tablet Orally Once a dayMetoprolol Tartrate 100 MG Tablet 1 tablet with food Orally Twice a dayNitroglycerin 0.4 MG Tablet Sublingual as directed Sublingual Jardiance 25 MG Tablet 1 tablet Orally Once a dayBetamethasone Dipropionate 0.05 % Cream 1 application Externally Once a dayLosartan Potassium 100 MG Tablet Oral Trulicity 4.5 MG/0.5ML Solution Auto-injector Subcutaneous Gabapentin 300 MG Capsule Oral Taking Eliquis 5 MG Tablet as directed Orally Taking Furosemide 80 MG Tablet 1 tablet Orally Once a dayTaking Allopurinol 300 MG Tablet 1 tablet Orally Once a dayTaking Pravastatin Sodium 80 MG Tablet 1 tablet Orally Once a dayTaking Aspir-81 81 MG Tablet Delayed Release 1 tablet Orally Once a dayTaking Metoprolol Tartrate 100 MG Tablet 1 tablet with food Orally Twice a dayTaking Nitroglycerin 0.4 MG Tablet Sublingual as directed Sublingual Taking Jardiance 25 MG Tablet 1 tablet Orally Once a dayTaking Betamethasone Dipropionate 0.05 % Cream 1 application Externally Once a dayTaking Losartan Potassium 100 MG Tablet Oral Taking Trulicity 4.5 MG/0.5ML Solution Auto-injector Subcutaneous Taking Gabapentin 300 MG Capsule Oral DiscontinuedWarfarin Sodium 5 MG Tablet 1 tablet Orally Once a dayMedication List reviewed and reconciled with the patientDiscontinued Warfarin Sodium 5 MG Tablet 1 tablet Orally Once a dayMedication List reviewed and reconciled with the patient * Allergies:?yes[Allergies Lauryn ified] Objective: * Vitals:?Wt:229 lbs, Ht: 66 i n, BMI:36.96 Index, BP:111/11 mm Hg, Wt-k.87. * Examination: ???General Examination: ?GENERAL APPEARANCE:?pleasant, well nourished, well developed, in no acute distress.?EYES:?sclera non-icteric.?ORAL CAVITY:?mucosa moist.?NECK/THYROID:?no cervical lymphadenopathy, neck supple.?SKIN:?nonjaundiced, no spider angiomata.?HEART:?S1, S2 normal.?LUNGS:?clear to auscultation bilaterally.?ABDOMEN:?normal bowel sounds, no guarding or rigidity, no guarding or rigidity, no masses palpable, soft, nontender, nondistended.?EXTREMITIES:?no edema.?NEUROLOGIC:?alert and oriented.? Assessment: * Assessment: 1.?Preprocedural examination - Z01.818 (Primary)?2.?Hx of adenomatous colonic polyps - Z86.010?3.?Encounter for screening for malignant neoplasm of colon - Z12.11? Overall, Everardo appears well. G iven his previous history of tubular adenomas and his last colonoscopy being over 5 years ago, I did recommend a followup colonoscopy for further screening purposes. We did review the rationale for this in regard to colorectal cancer prevention and/or early detection. Full consent was obtained for this, including risks of bleeding and perforation. He will have a PAT for the procedure and the procedure will be done with monitored anesthesia care. He was given the below instructions regarding adjustment of his medications for the procedure. Everardo was comfortable with this plan. Thank you again for allowing me to participate in Everardo's care. I shall continue to keep you advised of his progress. Plan: * Treatment: 2.?Encounter for screening for malignant neoplasm of colon?Procedure: COLONOSCOPY (Ordered for 08/12/2024)* with MACsched for 11/19/24 at 10:30 ammiralax Notes: DO NOT TAKE TRULICITY FOR AT LEAST 7 DAYS BEFORE THE COLONOSCOPY DO NOT TAKE JARDIANCE FOR 3 DAYS BEFORE THE COLONOSCOPY DO NOT TAKE FUROSEMIDE ON THE DAY OF THE COLONOSCOPY DO NOT TAKE ELIQUIS FOR 3 DAYS BEFORE THE COLONOSCOPY DO NOT TAKE ASPIRIN ON THE MORNING OF THE COLONOSCOPY?? * Procedure Codes:?3017F COLOR ECTAL CA SCREEN DOC DXT1640K TOBACCO [id number]-[id number] BP SCR NOT PRFRM REC REASON NOS * Preventive Medicine:? ??Counseling:?Care goal follow-up plan:?Above Normal BMI Follow-up?Exercise promotion: stretching,?BMI management provided?Yes.? ??Screenings:?Fall Risk Screening?Fall Risk Assessment:?No falls in the past year,?Screening:?No falls in the past year,?Assessment:?Not performed, no reason specified,?Plan of Care:?Not documented, no reason specified.? * Follow Up:?prn * * Sign off status: Completed true * Provider:?Juan Barrios MD Date:? 025 Generated for Rome samson/Octavio/Dieudonneitting on:?10/01/2024 10:56 AM EDT History and Physical Notes * HPI (History of Present Illness) Category Sub-Category Detail Notes Category Not es incontinence I saw Everardo in the office today for evaluation of his personal history of tubular adenomas of the colon and need for colorectal cancer screening. I last saw Everardo in June of 2019, at which time he underwent a followup colonoscopy with removal of a tubular adenoma. He presently feels well. He enjoys a good appetite without any significant heartburn or dysphagia. He denies any change in bowel habits, hematochezia, nor melena. He denies abdominal pain, jaundice, nor unintentional weight loss. He denies any known family history of colon cancer. He reports that he has been feeling well in general and has not had any intervening cardiac issues since his bypass in 2003. He does not have a home planning consultant salesperson. Examination Category Sub-Category Detail Notes Category Not es General Examination GENERAL APPEARANCE: pleasant , well nourished, well developed, in no acute distress HEAD: EYES: sclera non-icteric EARS: NOSE: THROAT: NECK/THYROID: no cervical lymphade nopathy, neck supple HEART: S1, S2 normal CHEST: LUNGS: clear to auscultatio n bilaterally ABDOMEN: normal bowel sounds, no guarding or rigidity, no guarding or rigidity, no masses palpable, soft, nontender, nondistended NEUROLOGIC: alert and oriented SKIN: nonjaundiced, no spi arnulfo angiomata EXTREMITIES: no edema PERIPHERAL PULSES: BACK: BREASTS: MUSCULOSKELETAL: MALE GENITOURINARY: LYMPH NODES: RECTAL EXAM: FEMALE GENITOURINARY: ORAL CAVITY: mucosa moist
--- OUTSIDE RECORDS SUMMARY | 2024-10-01 10:56 | XMS_ITS | Patient Health Record ---
Author Organization [facility] Address [address] [place] [address] Care Team Providers Care Account Contact Associate Name Role Phone Prosper (RETIRED) Juan SOLOMON Primary Care Provid er Unavailable Juan Barrios Unavailable [phone] Reason For Referral Referring Provider First Name Juan Referring Provider Last Name Prosper (RE TIRED) Referring Provider Speciality Internal M edicine Referred Organization [facility] Referred Provider Juan Barrios Referred Address [address],[place], [place],[address],[place] Referred Provider Specialty Gastroentero logy Referral Priority Routine Medications Medication SIG (Take, Route, Frequency, Duration) Notes Start Date End Date Status Jardiance 25 MG 1 tablet Orally Once a day for 30 day(s) Active Nitroglycerin 0.4 MG as directed Sublingual Active Eliquis 5 MG as directed Orally Active Trulicity 4.5 MG/0.5ML Subcutaneous for 84 Days Active Furosemide 80 MG 1 tablet Orally Once a day Active Gabapentin 300 MG Oral for 90 Days Active Betamethasone Dipropionate 0.05 % 1 application Externally Once a day Active Losartan Potassium 100 MG Oral for 90 Days Active Aspir-81 81 MG 1 tablet Orally Once a day Active Metoprolol Tartrate 100 MG 1 tablet with food Orally Twice a day for 30 day(s) Active Allopurinol 300 MG 1 tablet Orally Once a day Active Pravastatin Sodium 80 MG 1 tablet Orally Once a day Active Immunizations Vaccine Route Administration Date Status Comme nts Influenza Unknown 03/16/2019 Administered Problems Problem Type SNOMED Code ICD Code Onset Dates Problem Status W/U Status Risk Notes Problem 338961030 Encounter for screening for malignant neoplasm of colon (Z12.11) Active confirmed Problem 423948926254144 Preprocedural examination (Z01.818) Active confirmed Problem 931064403 Hx of adenomatou s colonic polyps (Z86.010) Active confirmed Problem 410150407 Long-term (current) use of anticoagulants, INR goal 2.0-3.0 (Z79.01) Active confirmed Vital Signs Blood pressure diastolic 11 mm Hg 08/12/2024 Height 66 in 08/12/2024 Blood pressure systolic 111 mm Hg 08/12/2024 Weight 229 lbs 08/12/2024 BMI 36.96 kg/m2 08/12/2024 Encounters Encounter Location Date Provider Diagnosis [facility] [address] [place] [address] 08/12/2024 Juan Barrios Hx of adenomatous colonic polyps Z86.010 ; Preprocedural examination Z01.818 and Encounter for screening for malignant neoplasm of colon Z12.11 [facility] [address] [place] [address] 08/13/2024 Juan Barrios Assessments Encounter Date Diagnosis (ICD Code) Assessment Notes Treatment Notes Treatment Clinical Notes Section Notes 08/12/2024 Preprocedural examination (ICD-10 - Z01.818) Overall, [...] keep you advised of his progress. 08/12/2024 Hx of adenomatous colonic polyps (ICD-10 [...] advised of his progress. Plan Of Treatment Future Test Test Name Order Date COLONOSCOPY 12/17/2013 COLONOSCOPY 05/15/2019 COLONOSCOPY 08/12/2024 Next Appt Details Provider Name:Juan Barrios , 11/19/2024 10:30:00 AM, [address] [place] [address], [phone], Insurance Providers Payer Name Payer Address Payer Phone Subscriber Number Group Number Insured Name Patient Relationship to Insured Coverage Start Date Coverage End Date [facility] [employer] [address] [place] [address] [id number] ALYSE BRIANAKI Self - patient is the insured Medical (General) History Medical History History ICD Code Colonoscopy 11-13-2008--1 smal l tubular adenoma removed--also noted to have mild sigmoid diverticulosis and small internal hemorrhoids; colonoscopy in 02/2014 with 2 tubular adenomas removed Gout CAD--coronary artery disease with a 3V C ABG in 2003 Hypertension Hyperlipidemia Denies UT,CVA,Lung disease,renal disease NIDDM Sleep apnea for which he uses a CPAP mac medhat Atrial fibrillation History of pneumonia Colonoscopy 06/2019 1 small tubular sandra tarah removed Surgical History Surgery Date(Month/Year) CABG as above
--- OUTSIDE RECORDS SUMMARY | 2024-10-01 10:57 | XMS_ITS | Encounter Summary ---
Author Organization [employer] [facility] Address [address] [place] [address] Care Team Providers Care Pediatrician Name Role Phone Unavailable Primary Care Provider Unavailabl e Encounter Details Date Type Department Care Team (Latest Contact Info) Description 05/11/2020 Abstract [facility] Dental, Provider, DDS Social History Tobacco Use Types Packs/Day Years Used Date Smoking Tobacco: Never Assessed Sex and Gender Information Value Date Recorded Sex Assigned at Male 05/15/2022 10:34 AM EDT Legal Sex Male 10:34 AM EDT Gender Identity Male 05/15/2022 10:34 AM EDT Sexual Orientation Straight 05/15/2022 10 :34 AM EDT documented as of this encounter Plan of Treatment Not on file documented as of this encounter Visit Diagnoses Not on filedocumented in this encounter
== END 2024-10-01 10:29 | disposition home or self-care (01) ==
LOC: HO.HMCSH 09:45
PROVIDERS: PCP Internal Medicine; Visit Provider Physician Assistant Medical
DX: Z09 Encounter for follow-up examination after completed treatment for conditions other than malignant neoplasm (principal); M10.9 Gout, unspecified; I25.10 Atherosclerotic heart disease of native coronary artery without angina pectoris; G47.33 Obstructive sleep apnea (adult) (pediatric); E34.9 Endocrine disorder, unspecified; I10 Essential (primary) hypertension; E78.00 Pure hypercholesterolemia, unspecified; E11.9 Type 2 diabetes mellitus without complications; I48.91 Unspecified atrial fibrillation; I50.9 Heart failure, unspecified; E66.01 Morbid (severe) obesity due to excess calories; Z68.36 Body mass index [BMI] 36.0-36.9, adult; G25.81 Restless legs syndrome

== ENCOUNTER → 2024-10-01 09:45 | Outpatient (BNVA) | payer MEDICARE, MEDICAID, SELFPAY | PROVIDERS: PCP Internal Medicine; Visit Provider Physician Assistant Medical | DX: Z09 Encounter for follow-up examination after completed treatment for conditions other than malignant neoplasm (principal); M10.9 Gout, unspecified; I25.10 Atherosclerotic heart disease of native coronary artery without angina pectoris; G47.33 Obstructive sleep apnea (adult) (pediatric); E34.9 Endocrine disorder, unspecified; E78.00 Pure hypercholesterolemia, unspecified; E11.9 Type 2 diabetes mellitus without complications; I48.91 Unspecified atrial fibrillation; I11.0 Hypertensive heart disease with heart failure; I50.9 Heart failure, unspecified; E66.01 Morbid (severe) obesity due to excess calories; Z68.36 Body mass index [BMI] 36.0-36.9, adult; G25.81 Restless legs syndrome; Z71.3 Dietary counseling and surveillance | CPT/HCPCS: 99202 ==

== ENCOUNTER → 2024-11-05 10:35 | Outpatient (BNV) | payer MEDICARE, MEDICAID, SELFPAY | PROVIDERS: PCP Internal Medicine; Visit Provider Internal Medicine | DX: I48.91 Unspecified atrial fibrillation (principal) | CPT/HCPCS: 93010 ==

== ENCOUNTER 2024-11-13 09:20 | Outpatient (REF) | payer MEDICARE, MEDICAID, SELFPAY ==
--- OUTSIDE RECORDS SUMMARY | 2024-11-13 10:09 | XMS_ITS | Clinical Summary ---
Author Organization [employer] Address [address] [place] [address] Care Team Providers Care Toll Gate Keeper Name Role Phone Unavailable Primary Care Provider [...]
--- OUTSIDE RECORDS SUMMARY | 2024-11-13 10:09 | XMS_ITS | Continuity of Care Document ---
Author Organization [facility] [address] [place] [address] Phone [phone] Care Team Providers Care Engineer Technician Name Role Phone Juan Cheng M.D. Care Team Information Recei luis m [phone] Problems Active Problems Provider Date H/O: atrial [...] 2units E11.9 Gregory Piedra M.D. 10/05/2022 Sildenafil Okzjwqn59nm Tablets take 1 tablet by mouth 30-60 minutes before planned sexual activity 10tabs Gregory Piedra M.D. 03/07/2022 Trulicity1.5mg/0.5ML Solution Pen-Inject inject 1.5mg subcutaneously every week 12units Gregory Piedra M.D. 03/06/2022 Adocshpcoqt405pp Tablets Take 1 tablet daily Juan Cheng M.D. Bnwulurun06ig Tablets Take 1 tablet daily Juan Cheng M.D. Metoprolol Wzxzxfah191ly Tablets Take One Tablet Twice Daily With Food Juan Cheng M.D. Pravastatin Rwglaf05tt Tablets Take One Tablet Daily Juan Cheng M.D. Losartan Aotdbehne049uv Tablets Take One Tablet Daily Juan Cheng M.D. Hnwpidtmq3jz Tablets Take Two Tablets Twice Daily Juan Cheng M.D. Hjcitetjuj84oi Tablets Take One Tablet By Mouth Every Day Juan Cheng M.D. Slfdfgg9gv Tablets Take 1 pill twice daily Juan Cheng M.D. Cyclobenzaprine VAO32yj Tablets Take One Tablet By Mouth AT [...] Appt Kostas e Gregory Piedra M.D. Created [address] [place] [address] Drive [address] [place] [address] [phone]
--- OUTSIDE RECORDS SUMMARY | 2024-11-13 10:09 | XMS_ITS | Encounter Summary ---
Author Organization [employer] Address [address] [facility] [address] [place] [address] Care Team Providers Care Help Desk Rep Name Role Phone Unavailable Primary Care Provider Unavailabl e Encounter Details Date Type Department Care Team (Latest Contact Info) Description 05/11/2020 Abstract [facility] CONVERSIONS Dental, Provider, DDS Social History Tobacco [...]
[2024-11-13 13:06] LABS: MANUAL DIFF FLAG NO
[2024-11-13 13:14] LABS: Basophils Absolute Auto 0.1 X10*3/uL (0.0-0.2); Basophils Percent Auto 0.9 % (0-2); Eosinophils Absolute Auto 0.2 X10*3/uL (0.0-0.4); Eosinophils Percent Auto 3.5 % (0-4); Hematocrit 49.4 % (42.0-52.0); Hemoglobin 16.5 g/dl (14.0-18.0); Imm Gran Abs Auto 0.02 X10*3/uL (0.00-0.03); Imm Gran Pct Auto 0.3 % (0.0-0.4); Lymphocytes Absolute Auto 1.8 X10*3/uL (1.2-4.9); Lymphocytes Percent Auto 25.8 % (20-40); Mean Corpuscular HGB Conc 33.4 g/dl (31.0-36.0); Mean Corpuscular Hemoglobin 30.7 pg (27.0-33.0); Mean Platelet Volume 12.7 fL (9.4-12.4); Monocytes Absolute Auto 0.5 X10*3/uL (0.1-1.2); Monocytes Percent Auto 7.7 % (2-11); Neutrophils Absolute Auto 4.2 x10*3/uL (2.0-8.3); Neutrophils Percent Auto 61.8 % (45-73); Platelet Count 125 X10*3/uL (160-400); Red Blood Count 5.37 X10*6/uL (4.60-5.80); Red Cell Distribution Width 14.7 % (11.0-16.0); White Blood Count 6.9 X10*3/uL (4.8-10.8)
[2024-11-13 13:28] LABS: Estimated Average Glucose 171 mg/dL; Hemoglobin A1C 250.9832 umol/L; Hemoglobin A1c % 7.6 % (<6.0)
[2024-11-13 13:46] LABS: Alanine Aminotransferase 49 U/L (0-40); Albumin Level 4.2 g/dL (3.5-5.0); Alkaline Phosphatase 98 U/L (39-117); Anion Gap 13 (12-20); Aspartate Amino Transferase 42 U/L (5-37); Bilirubin Direct 0.3 mg/dL (0.0-0.5); Bilirubin Total 0.9 mg/dL (0.0-1.0); Blood Urea Nitrogen 25 mg/dL (9-16); Carbon Dioxide 28 mmol/L (22-29); Chloride 106 mmol/L (96-108); Cholesterol 147 mg/dL (<200); Estimated Glomerular Filt Rate 49; Glucose Fasting 139 mg/dL (60-99); HDL Cholesterol 37 mg/dL (>40); LDL Cholesterol Calculated 61 mg/dL (<100); Magnesium 2.2 mg/dL (1.6-2.6); Potassium 4.2 mmol/L (3.3-5.1); Sodium 143 mmol/L (135-145); Triglycerides 245 mg/dL (<150)
[2024-11-13 13:51] LABS: TSH reflex Free T4 1.44 uIU/mL (0.32-4.0); Vitamin D 25-OH Total 56.3 ng/mL (>30)
[2024-11-13 13:52] LABS: Erythrocyte Sedimentation Rate 7 MM/HR (0-15)
[2024-11-13 14:03] LABS: Folate 8.6 ng/mL (> or = 4.0); Vitamin B12 829 pg/mL (200-900)
[2024-11-13 14:38] LABS: Creatinine Urine 23.13 mg/dL; Microalbum/Creatinine Ratio Ur 324.2 ug/mg cr (<30)
[2024-11-18 12:47] LABS: Testosterone, Total 294 ng/dL (250-1100)
== END 2024-11-13 09:21 | disposition home or self-care (01) ==
LOC: HO.HMGCLDS 09:20
PROVIDERS: PCP Internal Medicine; Visit Provider Physician Assistant Medical
DX: Z00.00 Encounter for general adult medical examination without abnormal findings (principal); E11.9 Type 2 diabetes mellitus without complications
CPT/HCPCS: 36415; 80053; 80061; 80076; 82043; 82248; 82306; 82570; 82607; 82746; 83036; 83735; 84403; 84443; 85025; 85652; 86140

== ENCOUNTER 2024-11-19 08:45 | Day surgery (SDC) | payer MEDICARE, MEDICAID, SELFPAY ==
--- OUTSIDE RECORDS SUMMARY | 2024-10-22 15:40 | XMS_ITS | Encounter Summary ---
Author Organization [employer] [facility] Address [address] [place] [address] Care Team Providers Care Whipped Topping Mixer Name Role Phone Unavailable Primary Care Provider Unavailabl e Encounter Details Date Type Department Care Team (Latest Contact Info) Description 05/11/2020 Abstract [facility] Dental, Provider, DDS Social History [...]
--- OUTSIDE RECORDS SUMMARY | 2024-10-22 15:40 | XMS_ITS ---
Author Organization [facility] Address [address] [place] [address] Care Team Providers Care Jinrikisha Driver Name Role Phone Prosper (RETIRED) Juan SOLOMON Primary Care Provid er Unavailable Juan Barrios Unavailable [phone] REASON FOR VISIT patient presents today fo [...] 08/12/2024 Encounters Encounter Location Date Provider Diagnosis [facility] [address] [place] [address] 08/12/2024 Juan Barrios Hx of adenomatous colonic [...] Provider Name:Juan Barrios , 11/19/2024 10:30:00 AM, [address] [place] [address], [phone], Progress Notes * KI LATHAM ADOB: (74 yo M)Acc No.[id number]:08/12/2024 Progress Notes Patient:?KI LATHAM A Provider:?Juan Barrios MD :1950???Age:73 Y???Sex:Male Kostas e:08/12/2024 Address:[address] [place], [place] [phone] Pcp:Juan Cheng (RETIRE D), DO Subjective: * [...] in 2003. He does not have a insurance loss assessor. * ROS:?General/Constitutional:?Change in appetite?denies.?Chills?denies.?Fatigue?denies.?Ophthalmologic:?Comments?all negative.?ENT:?Comments?all negative.?Respiratory:?hemoptysis?denies.?Cough?denies.?Cardiovascular:?Chest pain?denies.?Orthopnea?denies.?Gastrointestinal:?Comments?See HPI for details.?Genitourinary:?Hematuria?denies.?Dysuria?denies.?Musculoskeletal:?Painful joints?denies.?Weakness?denies.?Skin:?Itching?denies.?Rash?denies.?Neurologic:?Headache?denies.?Seizures?denies.?Psychiatric:?Comments?all negative.? * Medical History:? * Surgical History:?CABG as ab ove * Hospitalization/Major Diagno stic Procedure:?No Hospitalization History. * Family History:?Father: dece ased.?Mother: .? No family history of colorectal cancer. * Social History:?Tobacco Use:?Tobacco Use/Smoking?Are you a: nonsmoker.?Drugs/Alcohol:?Alcohol Screen?Points: 1, Interpretation: Negative.?Miscellaneous:?Marital status: . 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 ???Nonsmoker; no sig alcohol. * Medications:?TakingEliquis 5 [...] Procedure Codes:?3017F COLOR ECTAL CA SCREEN DOC EMW6860M TOBACCO NON-UNPTM0843 BP SCR NOT PRFRM REC REASON NOS [...] MD Date:? 025 Generated for Rome samson/Octavio/Dieudonneitting on:?10/22/2024 03:39 PM EDT History and Physical Notes * HPI [...] in 2003. He does not have a insurance loss assessor. Examination Category Sub-Category Detail Notes Category Not [...]
--- OUTSIDE RECORDS SUMMARY | 2024-10-22 15:40 | XMS_ITS | Continuity of Care Document ---
Author Organization [facility] [address] [place] [address] Phone [phone] Care Team Providers Care Program Management Manager Name Role Phone Juan Cheng M.D. Care Team Information Recei luis m [phone] Problems Active Problems Provider Date H/O: atrial [...] 2units E11.9 Gregory Piedra M.D. 10/05/2022 Sildenafil Zeuqfcz45zw Tablets take 1 tablet by mouth 30-60 minutes before planned sexual activity 10tabs Gregory Piedra M.D. 03/07/2022 Trulicity1.5mg/0.5ML Solution Pen-Inject inject 1.5mg subcutaneously every week 12units Gregory Piedra M.D. 03/06/2022 Wgqqfxumvwu288my Tablets Take 1 tablet daily Juan Cheng M.D. Ffzqrfagf77qc Tablets Take 1 tablet daily Juan Cheng M.D. Metoprolol Nxsinatu913cq Tablets Take One Tablet Twice Daily With Food Juan Cheng M.D. Pravastatin Inwytd35eu Tablets Take One Tablet Daily Juan Cheng M.D. Losartan Itvfytedj959wq Tablets Take One Tablet Daily Juan Cheng M.D. Cbflbiwwd9wg Tablets Take Two Tablets Twice Daily Juan Cheng M.D. Fwcdcwggkb32vv Tablets Take One Tablet By Mouth Every Day Juan Cheng M.D. Vtcmzmn9sr Tablets Take 1 pill twice daily Juan Cheng M.D. Cyclobenzaprine ZVL23sw Tablets Take One Tablet By Mouth AT [...] Appt Kostas e Gregory Piedra M.D. Created [address] [place] [address] Drive [address] [place] [address] [phone]
--- OUTSIDE RECORDS SUMMARY | 2024-10-22 15:40 | XMS_ITS | Clinical Summary ---
Author Organization [employer] [facility] Address [address] [place] [address] Care Team Providers Care Dog Sitter Name Role Phone Unavailable Primary Care Provider [...]
--- OUTSIDE RECORDS SUMMARY | 2024-10-22 15:40 | XMS_ITS | Patient Health Record ---
Author Organization [facility] Address [address] [place] [address] Care Team Providers Care Molecular Genetic Pathologist Name Role Phone Prosper (RETIRED) Juan SOLOMON Primary Care Provid er Unavailable Juan Barrios Unavailable [phone] Reason For Referral Referring Provider First Name Juan Referring Provider Last Name Prosper (RE TIRED) Referring Provider Speciality Internal M edicine Referred Organization [facility] Referred Provider Juan Barrios Referred Address [address],[place], [place],[address],[place] Referred Provider Specialty Gastroentero logy Referral Priority [...] Problem Status W/U Status Risk Notes Problem 134325250 Encounter for screening for malignant neoplasm of colon (Z12.11) Active confirmed Problem [id number] Preprocedural examination (Z01.818) Active confirmed Problem 300912440 Hx of adenomatou s colonic polyps (Z86.010) Active confirmed Problem [id number] Long-term (current) use of anticoagulants, INR goal 2.0-3.0 (Z79.01) Active confirmed Vital Signs Blood pressure diastolic 11 mm Hg 08/12/2024 Height 66 in 08/12/2024 Blood pressure systolic 111 mm Hg 08/12/2024 Weight 229 lbs 08/12/2024 BMI 36.96 kg/m2 08/12/2024 Encounters Encounter Location Date Provider Diagnosis [facility] [address] [place] [address] 08/12/2024 Juan Barrios Hx of adenomatous colonic polyps Z86.010 ; Preprocedural examination Z01.818 and Encounter for screening for malignant neoplasm of colon Z12.11 [facility] [address] [place] [address] 08/13/2024 Juan Barrios Assessments Encounter Date Diagnosis [...] Provider Name:Juan Barrios , 11/19/2024 10:30:00 AM, [address] [place] [address], [phone], Insurance Providers Payer Name Payer Address Payer Phone Subscriber Number Group Number Insured Name Patient Relationship to Insured Coverage Start Date Coverage End Date [facility] [employer] [address] [place] [address] [id number] ALYSE BRIANAKI Self - patient is the insured Medical (General) History Medical History History ICD Code Colonoscopy 11-13-2008--1 smal l tubular adenoma removed--also noted to have mild sigmoid diverticulosis and small internal hemorrhoids; colonoscopy in 02/2014 with 2 tubular adenomas removed Gout CAD--coronary artery disease with a 3V C ABG in 2003 Hypertension Hyperlipidemia Denies VT,CVA,Lung disease,renal disease NIDDM Sleep apnea for which he uses a CPAP mac medhat Atrial fibrillation History of pneumonia Colonoscopy 06/2019 1 small tubular sandra tarah removed Surgical History Surgery Date(Month/Year) CABG as above
--- OUTSIDE RECORDS SUMMARY | 2024-10-22 15:40 | XMS_ITS ---
Author Organization [facility] Address [address] [place] [address] Care Team Providers Care Supervisor Inventory Merchandising Name Role Phone Prosper (RETIRED) Juan SOLOMON Primary Care Provid er Unavailable Juan Barrios [phone] Encounters Encounter Location Date Provider Diagnosis [facility] [address] [place] [address] 08/13/2024 Juan Barrios Plan Of Treatment Next Appt Details Provider Name:Juan Barrios , 11/19/2024 10:30:00 AM, [address] [place] [address] , [place], [place], [phone], Progress Notes * KI LATHAM ADOB: (73 yo M)Acc No.[id number]:08/13/2024 Patient:?KI LATHAM :1950???Age:73 Y???Sex:Male Address:[address] [place] [address] * true * Date:? Generated for Printi chapin/Octavio/eTransmitting on:?10/22/2024 03:39 PM EDT
--- NOTE | 2024-11-05 | ECG_ITS ---
Test Reason : pre op Blood Pressure : */* mmHG Vent. Rate : 69 BPM Atrial Rate : * BPM P-R Int : * ms QRS Dur : 106 ms QT Int : 420 ms P-R-T Axes : * 52 46 degrees QTcB Int : 450 ms Atrial fibrillation Abnormal ECG When compared with ECG of 06-May-2003 10:09, Atrial fibrillation has replaced Sinus rhythm Referred By: Malina Fournier Electronically Signed By: MARC SIMENTAL
[2024-11-05 10:03] VITALS: BMI 36.1
[2024-11-05 10:09] VITALS: BP 142/76; PULSE 65; RESP 20; O2SAT 97
--- NOTE | 2024-11-05 10:20 | HO.ANESPROP2 ---
Documented by User: Malina Fournier NP 11/18/24 09:28 HPI - Anesthesia Eval Consult details Narrative: 74yo M for Colonoscopy, 11/19/24 No recent illness No CP/SOB with walking far daily CAD s/p CABG x 3 Afib on eliquis Only followed by PCP in recent years (Dr Cheng), now PCP retired. Pending referral to [facility] cardiology by new PCP, but pt asymptomatic Pt uncooperative with questions/exam during PAT. Labs and EKG ordered. Exam deferred. Anesthesia Pre-Procedure Meds Is the patient on any of the following meds?: GLP1/DPP4 and SGLT2 Inhib PMFSH Active Problems Active Problems: All Active Problems Follow-up exam, 3-6 months since previous exam (Acute) Restless leg syndrome (Acute) Severe obesity with body mass index (BMI) of 36.0 to 36.9 with serious comorbidity (Acute) Hypotestosteronism (Acute) Gout (Acute) Coronary artery disease (Acute) Obstructive sleep apnea (Acute) Hypertension (Acute) Mild hypercholesterolemia (Acute) Type 2 diabetes mellitus with hemoglobin A1c goal of less than 7.0% (Acute) Atrial fibrillation (Acute) CHF (congestive heart failure) (Acute) Past Medical History Medical History (Updated 11/14/24 @ 11:49 by Ronna Casey PA-C) Hypertriglyceridemia Elevated ALT measurement Elevated AST (SGOT) IDANIA (acute kidney injury) Arthritis Restless leg syndrome Severe obesity with body mass index (BMI) of 36.0 to 36.9 with serious comorbidity History of pneumonia Hypotestosteronism Gout Coronary artery disease Obstructive sleep apnea Hypertension Mild hypercholesterolemia Type 2 diabetes mellitus with hemoglobin A1c goal of less than 7.0% Atrial fibrillation CHF (congestive heart failure) Surgical History Surgical History (Updated 11/05/24 @ 09:59 by Chata Fermin RN) Hx of bilateral cataract extraction History of colonoscopy (~11/2019) History of coronary artery bypass graft Social History Social History Are you a primary manager home healthcare to a significant other at home: No Do you presently have visiting nurse or other home services: No Patient Tobacco Use Status: Former Tobacco user Tobacco use type: Pipe Use of substances other than those prescribed or required for medical reasons: No Have you been hit, kicked, punched, or otherwise hurt by someone within the past year? If so, by whom?: No Spiritual Healthcare Practices: no Jewish Healthcare Practices: no Cultural Healthcare Practices: no Are you DNR?: No Advance Directives Information Provided: Yes (as above noted) Advance Directives on File: No Poor oral hygiene: No Meds Allergies Allergy/AdvReac Type Severity Reaction Status Date / Time No Known Allergies Allergy Verified 11/19/24 09:25 Home Medications ?Medication ?Instructions ?Recorded ?Confirmed ?Last Taken ?Type allopurinol 300 mg tablet 300 mg PO BEDTIME 11/05/24 11/19/24 Unknown History aspirin 81 mg tablet,delayed 81 mg PO QA 11/05/24 11/19/24 Unknown History release empagliflozin 25 mg tablet 25 mg PO QA 11/05/24 11/19/24 11/15/24 History (Jardiance) furosemide 80 mg tablet 80 mg PO QAM 11/05/24 11/19/24 Unknown History losartan 100 mg tablet 100 mg PO QA 11/05/24 11/19/24 Unknown History metoprolol tartrate 100 mg tablet 100 mg PO QA 11/05/24 11/19/24 11/19/24 07:00 History pravastatin 80 mg tablet 80 mg PO BEDTIME 11/05/24 11/19/24 Unknown History Exam Height,Weight and Vital Signs: Height 5 ft 6.5 in Weight 102.965 kg Last Vital Signs Pulse 65 11/05/24 10:09 Resp 20 11/05/24 10:09 BP 142/76 H 11/05/24 10:09 Pulse Ox 97 11/05/24 10:09 O2 Del Method Room Air 11/05/24 10:09 Pertinent Lab Results Pertinent Lab Results: Lab Results 11/05/24 Range/Units 10:53 WBC 7.8 (4.8-10.8) X10*3/uL RBC 5.48 (4.60-5.80) X10*6/uL Hgb 16.8 (14.0-18.0) g/dl Hct 49.5 (42.0-52.0) % MCV 90.3 (80.0-98.0) fL MCH 30.7 (27.0-33.0) pg MCHC 33.9 (31.0-36.0) g/dl RDW 14.5 (11.0-16.0) % Plt Count 125 L (160-400) X10*3/uL MPV 12.5 H (9.4-12.4) fL Absolute Nucleated RBC 0.000 (0.0-0.012) X10*3/uL Nucleated RBC % (auto) 0.0 (0.0-0.2) /100WBC Sodium 141 (135-145) mmol/L Potassium 4.0 (3.3-5.1) mmol/L Chloride 105 (96-108) mmol/L Carbon Dioxide 28 (22-29) mmol/L Anion Gap 12 (12-20) BUN 28 H (9-16) mg/dL Creatinine 1.43 H (0.5-1.4) mg/dL Estim Creat Clear Calc 49.3 Estimated GFR 48 Random Glucose 186 H (60-115) mg/dL Estimat Average Glucose 169 mg/dL Hemoglobin A1c % 7.5 H (<6.0) % Calcium 10.4 H (8.4-10.2) mg/dL Total Bilirubin 0.6 (0.0-1.0) mg/dL AST 45 H (5-37) U/L ALT 56 H (0-40) U/L Alkaline Phosphatase 104 (39-117) U/L Total Protein 7.1 (6.5-8.0) g/dL Albumin 4.1 (3.5-5.0) g/dL Narrative Narrative: EKG 11/2024 Vent. Rate : 69 BPM Atrial Rate : * BPM P-R Int : * ms QRS Dur : 106 ms QT Int : 420 ms P-R-T Axes : * 52 46 degrees QTcB Int : 450 ms Atrial fibrillation Abnormal ECG When compared with ECG of 06-May-2003 10:09, Atrial fibrillation has replaced Sinus rhythm Assessment and Plan Assessment Anesthesia Assessment: Anesthesia Plan Discussed and PAT Visit Documented by User: Camila Brady MD 11/19/24 10:15 [facility] Past Medical History Medical History (Updated 11/14/24 @ 11:49 by Ronna Casey PA-C) Hypertriglyceridemia Elevated ALT measurement Elevated AST (SGOT) IDANIA (acute kidney injury) Arthritis Restless leg syndrome Severe obesity with body mass index (BMI) of 36.0 to 36.9 with serious comorbidity History of pneumonia Hypotestosteronism Gout Coronary artery disease Obstructive sleep apnea Hypertension Mild hypercholesterolemia Type 2 diabetes mellitus with hemoglobin A1c goal of less than 7.0% Atrial fibrillation CHF (congestive heart failure) Family History Family history of problems with anesthesia: No Surgical History Surgical History (Updated 11/05/24 @ 09:59 by Chata Fermin RN) Hx of bilateral cataract extraction History of colonoscopy (~11/2019) History of coronary artery bypass graft History of Problems with Anesthesia: No Social History Social History Are you a primary manager home healthcare to a significant other at home: No Do you presently have visiting nurse or other home services: No Patient Tobacco Use Status: Former Tobacco user Tobacco use type: Pipe Use of substances other than those prescribed or required for medical reasons: No Have you been hit, kicked, punched, or otherwise hurt by someone within the past year? If so, by whom?: No Spiritual Healthcare Practices: no Jewish Healthcare Practices: no Cultural Healthcare Practices: no Are you DNR?: No Advance Directives Information Provided: Yes (as above noted) Advance Directives on File: No Poor oral hygiene: No Meds Allergies Allergy/AdvReac Type Severity Reaction Status Date / Time No Known Allergies Allergy Verified 11/19/24 09:25 Home Medications ?Medication ?Instructions ?Recorded ?Confirmed ?Last Taken ?Type allopurinol 300 mg tablet 300 mg PO BEDTIME 11/05/24 11/19/24 Unknown History aspirin 81 mg tablet,delayed 81 mg PO QAM 11/05/24 11/19/24 Unknown History release empagliflozin 25 mg tablet 25 mg PO QAM 11/05/24 11/19/24 11/15/24 History (Jardiance) furosemide 80 mg tablet 80 mg PO QAM 11/05/24 11/19/24 Unknown History losartan 100 mg tablet 100 mg PO QAM 11/05/24 11/19/24 Unknown History metoprolol tartrate 100 mg tablet 100 mg PO QAM 11/05/24 11/19/24 11/19/24 07:00 History pravastatin 80 mg tablet 80 mg PO BEDTIME 11/05/24 11/19/24 Unknown History Exam Airway Mallampati Class: III TM Dist: >3cm Neck ROM: Full Assessment and Plan Assessment Anesthesia Assessment: Chart Reviewed Final Anesthetic Review Family History of Problems with Anesthesia: No History of Problems with Anesthesia: No NPO: Yes ASA Class: III Final Preanesthetic Review: No Changes in Pt Med Stat, Meds/Allgs Chart Reviewed, Consent Obtained/Reviewed and Anes Risks/Benef Reviewed Patient Risk: Intermediate Procedure Risk: Low Anesthetic Plan Anesthetic Plan: TIVA Disposition: Standard PACU
[2024-11-05 11:12] LABS: Hematocrit 49.5 % (42.0-52.0); Hemoglobin 16.8 g/dl (14.0-18.0); Mean Corpuscular HGB Conc 33.9 g/dl (31.0-36.0); Mean Corpuscular Hemoglobin 30.7 pg (27.0-33.0); Mean Corpuscular Volume 90.3 fL (80.0-98.0); Mean Platelet Volume 12.5 fL (9.4-12.4); Platelet Count 125 X10*3/uL (160-400); Red Blood Count 5.48 X10*6/uL (4.60-5.80); Red Cell Distribution Width 14.5 % (11.0-16.0); White Blood Count 7.8 X10*3/uL (4.8-10.8)
[2024-11-05 11:14] LABS: Estimated Average Glucose 169 mg/dL; Hemoglobin A1C 247.2377 umol/L; Hemoglobin A1c % 7.5 % (<6.0)
[2024-11-05 11:51] LABS: Alanine Aminotransferase 56 U/L (0-40); Albumin Level 4.1 g/dL (3.5-5.0); Alkaline Phosphatase 104 U/L (39-117); Anion Gap 12 (12-20); Aspartate Amino Transferase 45 U/L (5-37); Bilirubin Total 0.6 mg/dL (0.0-1.0); Blood Urea Nitrogen 28 mg/dL (9-16); Calcium 10.4 mg/dL (8.4-10.2); Carbon Dioxide 28 mmol/L (22-29); Chloride 105 mmol/L (96-108); Creatinine Clr Calc Pharmacy 49.3; Estimated Glomerular Filt Rate 48; Glucose Random 186 mg/dL (60-115); Sodium 141 mmol/L (135-145); Total Protein 7.1 g/dL (6.5-8.0)
[2024-11-19 09:38] VITALS: BP 150/76; PULSE 61; RESP 16; TEMP 36.3; O2SAT 98; BMI 36.6
[2024-11-19 09:53] LABS: Glucose, Whole Blood 147 mg/dL (60-115)
[2024-11-19] MEDS: Lactated Ringers 1,000 ML 50 ML IVCONT (09:55)
[2024-11-19 11:10] VITALS: BP 98/66; PULSE 74; RESP 16; TEMP 36.4; O2SAT 97
--- NOTE | 2024-11-19 11:15 | PM.OP ---
Brief Operative Note Date of Service: 11/19/24 Pre-op diagnosis: Screening Post-op diagnosis: other (Colon polyp) Procedure: Colonoscopy to the cecum with hot snare polypectomy and placement of 1 Resolution clip Surgeon: Juan Barrios MD Anesthesia: MAC Was an Cigarette Carton Sealer used for this Procedure?: No Estimated blood loss (mL): 0 Pathology: other (A. Ascending colon polyp) Condition: stable Disposition: PACU
[2024-11-19 11:25] VITALS: BP 136/75; PULSE 50; RESP 20; TEMP 36.3; O2SAT 98
--- NOTE | 2024-11-19 11:46 | OP_ITS ---
DATE OF SERVICE: 11/19/2024 SURGEON: Juan Barrios MD INDICATIONS: The patient presents for evaluation of personal history of tubular adenoma of the colon and need for colorectal cancer screening. Full consent obtained from him for this, including risks of bleeding and perforation. PREOPERATIVE DIAGNOSIS: POSTOPERATIVE DIAGNOSIS: PROCEDURE PERFORMED: Colonoscopy to the cecum with hot snare polypectomy and placement of 1 resolution clip. ESTIMATED BLOOD LOSS: COMPLICATIONS: ANESTHESIA: Monitored anesthesia care. ASSISTANTS: SPECIMENS: PREOPERATIVE DIAGNOSES: Colorectal cancer screening and personal history of tubular adenoma of the colon. POSTOPERATIVE DIAGNOSES: Colorectal cancer screening and personal history of tubular adenoma of the colon, colon polyp, diverticulosis, and internal hemorrhoids. DESCRIPTION OF PROCEDURE: The patient was placed in the left lateral decubitus position. The digital rectal exam revealed no abnormalities. The Olympus videopediatric colonoscope was entered into the rectum and advanced easily to the cecum. Once in the cecum, I did identify normal-appearing cecal pouch with appendiceal orifice and a normal-appearing ileocecal valve. The entire cecum and ileocecal valve appeared normal. The scope was slowly withdrawn assessing all mucosal surfaces carefully. Preparation was excellent. In the ascending colon, there was an approximately 12 mm polyp, which was removed by hot snare polypectomy recovered by suction. The polypectomy site appeared clean, without any sign of residual polyp nor bleeding. A single resolution clip was applied to the polypectomy site with good deployment and good hemostasis. I did not visualize any other polyps, colitis, nor angiodysplasia. There was a mild amount of sigmoid diverticulosis. In the rectum, scope was retroflexed visualizing internal hemorrhoids, but no other pathology. The rectal mucosa appeared normal. The scope was straightened and withdrawn from the patient. He tolerated the procedure well and was returned to recovery area in stable condition. IMPRESSION: 1. Colon polyp. 2. Diverticulosis. 3. Internal hemorrhoids. PLAN: The results of the pathology will be checked. At this time, given his age of 74 and these findings, I do not think he will need any further screening colonoscopies going forward. He was advised to resume his Eliquis tomorrow and his aspirin in 48 hours. He will otherwise see me on a p.r.n. basis. MD AMARI Marcial/BASIA / [id number] MTDD
== END 2024-11-19 12:20 | disposition home or self-care (01) ==
PROVIDERS: Nurse Practitioner; PCP Internal Medicine; Visit Provider Internal Medicine
PROC: 0DBE8ZZ Excision of Large Intestine, Via Natural or Artificial Opening Endoscopic (ICD-10-PCS; CPT 45385; principal; 2024-11-19 10:30)
DX: Z12.11 Encounter for screening for malignant neoplasm of colon (principal); Z86.0101 Personal history of adenomatous and serrated colon polyps; D12.2 Benign neoplasm of ascending colon; G47.33 Obstructive sleep apnea (adult) (pediatric); K57.30 Diverticulosis of large intestine without perforation or abscess without bleeding; K64.8 Other hemorrhoids; I10 Essential (primary) hypertension; E78.5 Hyperlipidemia, unspecified; I25.10 Atherosclerotic heart disease of native coronary artery without angina pectoris; Z95.1 Presence of aortocoronary bypass graft; I48.91 Unspecified atrial fibrillation; E11.9 Type 2 diabetes mellitus without complications; M10.9 Gout, unspecified; Z79.01 Long term (current) use of anticoagulants; Z79.82 Long term (current) use of aspirin; Z79.84 Long term (current) use of oral hypoglycemic drugs; Z79.85 Long-term (current) use of injectable non-insulin antidiabetic drugs; Z79.899 Other long term (current) drug therapy; Z99.89 Dependence on other enabling machines and devices
CPT/HCPCS: 45385; 36415; 80053; 82947; 83036; 85027; 88305; 93005; J2003; J2704

== ENCOUNTER 2024-12-26 09:15 | Outpatient (AMB) | payer MEDICARE, MEDICAID, SELFPAY ==
[2024-12-26 09:16] VITALS: BP 119/58; PULSE 71; RESP 14; TEMP 36.2; O2SAT 96; BMI 36.4
--- NOTE | 2024-12-26 09:16 | A.OFFPC_ITS ---
Vital Signs 12/26/24 09:16 Height 5 ft 6.25 in Weight 227 lb 1.218 oz BMI 36.4 BP 119/58 L Respiration 14 Pulse 71 Pulse Source Pulse Oximeter Temp 97.2 F Temp Source Temporal Artery Scan Pulse Oximetry (%) 96 Oxygen Delivery Method Room Air Intake Visit Reasons: peripheral neuropathy Director Of Health Care Marketing Required: No Accompanied by: Self / Same As Patient Allergies No Known Allergies Allergy (Verified 12/26/24 09:42) Medication List - Last Reconciled 12/26/24 by Ronna Casey PA-C allopurinol 300 mg PO BEDTIME apixaban (Eliquis) 5 mg PO BID 90 days aspirin 81 mg PO QAM betamethasone dipropionate 0.05% 1 appl topical DAILY PRN dulaglutide (Trulicity) 4.5 mg (0.5 mL) subcut QWEEK 90 days empagliflozin (Jardiance) 25 mg PO QAM furosemide 80 mg PO QAM gabapentin 600 mg (2 x 300 mg) PO TID 90 days losartan 100 mg PO QAM metoprolol tartrate 100 mg PO QAM nitroglycerin 0.4 mg sublingual Q5M PRN pioglitazone (Actos) 15 mg PO DAILY pravastatin 80 mg PO BEDTIME Tobacco use date assessed: 12/26/24 Fall risk assessment: No Falls in past year Last assessed Fall Risk: 12/26/24 Dental Screening Dental Screen Date: 12/26/24 Did you have a dental visit in the last 12 months?: No Did you have a dental problem in the last 6 months where you did not have access to dental care?: No Was dental information given to patient?: Patient has dentist HPI peripheral neuropathy HPI Details The patient is a 74-year-old male presenting with concerns related to peripheral neuropathy and diabetes management. The patient reports experiencing numbness in his feet and fingertips, which has been progressively worsening over the years. He attributes this to his diabetes mellitus, for which he is currently taking gabapentin 600 mg three times a day, although he reports minimal relief from the medication. The patient has a history of diabetes mellitus, currently managed with medications including Trulicity, Jardiance, and Actos. His last A1c was 7.6, indicating suboptimal control of his diabetes. He also reports erectile dysfunction, which he suspects may be related to his diabetes or medications. Previous testosterone levels were noted to be low, and he has been prescribed Viagra in the past with some benefit. Additionally, the patient has been diagnosed with arthritis and gout, with the latter being managed through dietary modifications. Social History - Level of activity: Patient enjoys anton ing and outdoor activities, but experiences fatigue with exertion. - Dietary habits: Avoids fatty foods to manage gout. [facility] Medical History (Updated 12/26/24 @ 10:54 by Ronna Casey PA-C) Erectile dysfunction Peripheral neuropathy Hypertriglyceridemia Elevated ALT measurement Elevated AST (SGOT) IDANIA (acute kidney injury) Arthritis Restless leg syndrome Severe obesity with body mass index (BMI) of 36.0 to 36.9 with serious comorbidity History of pneumonia Hypotestosteronism Gout Coronary artery disease Obstructive sleep apnea Hypertension Mild hypercholesterolemia Type 2 diabetes mellitus with hemoglobin A1c goal of less than 7.0% Atrial fibrillation CHF (congestive heart failure) Surgical History Hx of bilateral cataract extraction History of colonoscopy (~11/2019) History of coronary artery bypass graft Family History Father No problems noted. Mother No problems noted. Social History Housing: House Are you a primary healthcare recruiter to a significant other at home: No Do you presently have visiting nurse or other home services: No Alcohol intake: current Alcohol intake frequency: holidays/special occasions only Alcohol type: beer Patient Tobacco Use Status: Former Tobacco user Tobacco use type: Cigarette service: No Current occupational status: retired Cognitive needs: No Hearing needs: No Vision needs: Yes (reading glasses) Questionnaire PHQ-9 Over the last 2 weeks, how often have you been bothered by any of the following problems? 1. Little interest or pleasure in doing things: not at all 2. Feeling down, depressed, or hopeless: not at all 3. Trouble falling or staying asleep, or sleeping too much: not at all 4. Feeling tired or having little energy: not at all 5. Poor appetite or overeating: not at all 6. Feeling bad about yourself - or that you are a failure or have let yourself or your family down: not at all 7. Trouble concentrating on things, such as reading the newspaper or watching television: not at all 8. Moving or speaking so slowly that other people could have noticed. Or the opposite - being so fidgety or restless that you have been moving around a lot more than usual: not at all 9. Thoughts that you would be better off or of hurting yourself in some way: not at all Total score: 0 Depression Screening Interpretation: Negative Depression Screening Done: Yes 32611 - PHQ-9 Billing: Yes Source: Developed by Drs. Juan Palomo, Nedra Anna, Milo Bianchi and colleagues, with an educational elizabeth from [employer]. Thrive Questionnaire Date Thrive assessed: 12/26/24 I am a: Patient What is your living situation today?: I have a steady place to live Within the past 12 months, did the food you bought not last and you didn't have the money to get more?: Never true Within the past 12 months, did you worry whether your food would run out before you got money to buy more?: Never true Do you have trouble paying for medicines?: No Do you have trouble getting transportation to medical appointments?: No Do you have trouble paying your heating and electricity bill?: No Do you have trouble taking care of your child, family member or friend?: No Do you have trouble with day-to-day activities such as bathing, preparing meals, shopping, managing finances, etc.?: No Are you currently unemployed and looking for a job?: No Are you interested in more education?: No Please select the resources that you would like help with: None THRIVE Score: 0 AUDIT C Alcohol Use Questionnaire (AUDIT-C) 1. How often do you have a drink containing alcohol?: Monthly or less 2. How many drinks containing alcohol do you have on a typical day when you are drinking?: 1 or 2 3. How often do you have six or more drinks on one occasion?: Never Total Score: 1 Score Reviewed/Action Taken: No JERSON-7 AMB Questionnaire JERSON-7 Date JERSON - 7 assessed: 12/26/24 Feeling nervous, anxious, or on edge: 0 = Not at all Not being able to stop or control worryin = Not at all Worrying too much about different things: 0 = Not at all Trouble relaxin = Not at all Being so restless that it is hard to sit still: 0 = Not at all Becoming easily annoyed or irritable: 0 = Not at all Feeling afraid as if something awful might happen: 0 = Not at all Total JERSON-7 score (0-4 normal; 5-9 mild; 10-14 moderate; 15-21 severe): 0 Source: Developed by Drs. Juan Palomo, Nedra Anna, Milo Bianchi and colleagues, with an educational elizabeth from [employer]. JERSON-7 Assessment Billing JERSON-7 Assessment Tool: JERSON-7 Assessment 93377 Review of Systems Const Details: - Neurological: Reports numbness in feet and fingertips, worsening over time. Denies headaches or dizziness. - Cardiovascular: Denies chest pain or syncope. Reports fatigue with exertion. - Endocrine: Reports erectile dysfunction. Denies other endocrine symptoms. Physical exam (Primary Care) Vital Signs: Last Vital Signs Temp 97.2 F 12/26/24 09:16 Pulse 71 12/26/24 09:16 Resp 14 12/26/24 09:16 BP 119/58 L 12/26/24 09:16 Pulse Ox 96 12/26/24 09:16 Oxygen Delivery Method Room Air 12/26/24 09:16 Care Plan Goal for BP management: <140/90 at Goal BMI result Body Mass Index 36.4 BMI Assessment/Plan discussion: High BMI High, discussed plan: lifestyle, weight reduction, dietary, physical activity and alcohol moderation Tobacco/Smoking Status: Tobacco use Status Tobacco use date assessed 12/26/24 12/26/24 09:18 Patient Tobacco Use Status Former Tobacco user 12/26/24 09:33 Tobacco use type Cigarette 12/26/24 09:33 PHQ-9: PHQ-9 Score PHQ-9: Total score 0 12/26/24 09:33 Depression Screening Interpretation: Negative Thrive Assessment: Date of Thrive Assessment Date Thrive assessed 12/26/24 12/26/24 09:33 Const Other: Appearance: Alert. Oriented X3. No acute distress. Head: Normal external exam. Normocephalic. Atraumatic. Eyes: Pupils are equal, round, and reactive to light. Extraocular movements intact. Conjunctiva and sclera normal. Eyelids normal. Throat: Pharynx normal. Uvula midline. Moist mucous membranes. Neck: Normal inspection. Neck supple. Full range of motion. No adenopathy. Thyroid Normal. No meningeal signs. No neck mass noted. Cardiovascular: Normal heart rate and rhythm. Heart sound normal. Respiratory: No respiratory distress. Painless inspiration. Back: No costovertebral angle tenderness. Full range of motion noted. Skin: Skin warm and dry. Normal skin color. Normal skin turgor. No rashes/lesions/lacerations noted. Extremities: No lower extremity edema. Extremities exhibit normal range of motion. Extremities nontender. Neuro: Oriented X 3. No motor deficit. Reflexes normal. Peripheral neuropathy noted, with numbness in feet and fingertips. Otherwise rest of the patient's sensation is intact. Results Reviewed Results Reviewed: - Labs: A1c level at 7.6 Coding Level of Care Code Est Pt Level 4 (44249) Complex EM visit Add On G2211 Diagnoses Peripheral neuropathy G62.9 Type 2 diabetes mellitus with hemoglobin A1c goal of less than 7.0% E11.9 Erectile dysfunction N52.9 Gout M10.9 Additional Codes PHQ-9 - 96508 - PHQ-9 Billing: Yes ([id number]) JERSON-7 Assessment Billing - JERSON-7 Assessment Tool: JERSON-7 Assessment [id number] ([id number]) Assessment & Plan Assessment & Plan (1) Peripheral neuropathy: Code(s): G62.9 - Polyneuropathy, unspecified Category: Medical Plan: The patient is experiencing peripheral neuropathy, likely secondary to diabetes mellitus. Current management includes gabapentin 600 mg three times daily, although the patient reports minimal relief. Consideration for referral to neurology or endocrinology was discussed, but the patient prefers to continue current management with monitoring for any sores or complications. Condition is chronic and stable continue to monitor. (2) Type 2 diabetes mellitus with hemoglobin A1c goal of less than 7.0%: Comment: does not check glucose at home-dx ~ age 66-taking Jardiance & Trulicity Code(s): E11.9 - Type 2 diabetes mellitus without complications Category: Medical Plan: The patient's diabetes mellitus is currently managed with Trulicity, Jardiance, and Actos. His A1c is 7.6, indicating suboptimal control. A potential switch to semaglutide was discussed to improve glycemic control and assist with weight management, pending insurance approval. Condition is chronic and stable co ntinue to monitor. (3) Erectile dysfunction: Code(s): N52.9 - Male erectile dysfunction, unspecified Category: Medical Plan: The patient reports erectile dysfunction, potentially related to diabetes or medication side effects. Viagra has been prescribed previously with some benefit, and a new prescription for 50 mg tablets was provided, with instructions to adjust the dose as needed. Condition is chronic and stable continue to monitor. (4) Gout: Code(s): M10.9 - Gout, unspecified Category: Medical Plan: The patient manages gout primarily through dietary modifications, avoiding fatty foods. No acute flares were reported during this visit. Condition is chronic and stable will continue to monitor. Plan Plan Patient was informed and verbally consented to the use of an ambient scribe for clinic note documentation during this visit. 1. Peripheral Neuropathy The patient is experiencing peripheral neuropathy, likely secondary to diabetes mellitus. Current management includes gabapentin 600 mg three times daily, although the patient reports minimal relief. Consideration for referral to neurology or endocrinology was discussed, but the patient prefers to continue current management with monitoring for any sores or complications. 2. Diabetes Mellitus The patient's diabetes mellitus is currently managed with Trulicity, Jardiance, and Actos. His A1c is 7.6, indicating suboptimal control. A potential switch to semaglutide was discussed to improve glycemic control and assist with weight management, pending insurance approval. 3. Erectile Dysfunction The patient reports erectile dysfunction, potentially related to diabetes or medication side effects. Viagra has been prescribed previously with some benefit, and a new prescription for 50 mg tablets was provided, with instructions to adjust the dose as needed. 4. Arthritis The patient has arthritis, confirmed by previous imaging studies. Management includes monitoring symptoms and maintaining activity levels as tolerated. 5. Gout The patient manages gout primarily through dietary modifications, avoiding fatty foods. No acute flares were reported during this visit. During the visit, we discussed the management of peripheral neuropathy, emphasizing the importance of monitoring for sores and complications due to diabetes. We also reviewed the patient's diabetes management, considering a switch to semaglutide to improve glycemic control and assist with weight management, pending insurance approval. For erectile dysfunction, I prescribed Viagra 50 mg with instructions to adjust the dose as needed. Medications: New sildenafil (Viagra) administer 30 minutes to 4 hours before activity 50 mg PO DAILY PRN 20 tabs 1RF sexual activity Discontinued nitroglycerin do not exceed 3 doses per episode Discontinued Reason: Doctor's Order 0.4 mg sublingual Q5M PRN 30 tabs 1RF chest pain Patient Instructions: - Continue taking gabapentin as prescribed for neuropathy. - Monitor feet for any sores or changes and report any concerns immediately. - Follow dietary modifications to manage gout. - Take Viagra 50 mg as needed for erectile dysfunction, adjusting the dose if necessary. - Schedule follow-up appointment to discuss potential switch to semaglutide for diabetes management.
== END 2024-12-26 10:07 | disposition home or self-care (01) ==
LOC: HO.HMCSH 09:15
PROVIDERS: PCP Internal Medicine; Visit Provider Physician Assistant Medical
DX: E11.42 Type 2 diabetes mellitus with diabetic polyneuropathy (principal); G62.9 Polyneuropathy, unspecified; N52.9 Male erectile dysfunction, unspecified; M10.9 Gout, unspecified

== ENCOUNTER → 2024-12-26 09:15 | Outpatient (BNVA) | payer MEDICARE, MEDICAID, SELFPAY | PROVIDERS: PCP Internal Medicine; Visit Provider Physician Assistant Medical | DX: E11.40 Type 2 diabetes mellitus with diabetic neuropathy, unspecified (principal); N52.9 Male erectile dysfunction, unspecified; M10.9 Gout, unspecified; Z79.899 Other long term (current) drug therapy | CPT/HCPCS: 96127; 99212 ==

== ENCOUNTER 2025-04-27 09:51 | Outpatient (AMB) | payer MEDICARE, MEDICAID, SELFPAY ==
[2025-04-27 09:54] VITALS: BP 158/70; PULSE 48; RESP 16; TEMP 36.2; O2SAT 97; BMI 37.2
--- NOTE | 2025-04-27 09:54 | A.OFFPC_ITS ---
Vital Signs 04/27/25 09:54 04/27/25 11:33 Height 5 ft 6.25 in Weight 232 lb BMI 37.2 BP 158/70 H 130/70 Blood Pressure Location Lt brachial Lt brachial Position Sitting Respiration 16 Pulse 48 L 48 L Pulse Source Pulse Oximeter Temp 97.1 F Temp Source Temporal Artery Scan Pulse Oximetry (%) 97 Oxygen Delivery Method Room Air Intake Visit Reasons: 6 month follow up Debt Recovery Officer Required: No Accompanied by: Self / Same As Patient Allergies No Known Allergies Allergy (Verified 04/27/25 11:34) Medication List - Last Reconciled 04/27/25 by Ronna Casey PA-C allopurinol 300 mg PO BEDTIME apixaban (Eliquis) 5 mg PO BID 90 days aspirin 81 mg PO QAM betamethasone dipropionate 0.05% 1 appl topical DAILY PRN empagliflozin (Jardiance) 25 mg PO QAM furosemide 40 mg PO BID 90 days gabapentin 900 mg (3 x 300 mg) PO TID 30 days losartan 100 mg PO DAILY metoprolol tartrate 100 mg PO QAM pioglitazone (Actos) 15 mg PO DAILY pravastatin 80 mg PO BEDTIME semaglutide 0.5 mg (0.736 mL) subcut QWEEK tadalafil (Cialis) 10 mg PO DAILY PRN Tobacco use date assessed: 04/27/25 Dental Screening Dental Screen Date: 04/27/25 Did you have a dental visit in the last 12 months?: No Did you have a dental problem in the last 6 months where you did not have access to dental care?: No Was dental information given to patient?: Patient has dentist HPI 6 month follow up HPI Details The patient is a 74-year-old male presenting for a follow-up visit. The patient has a history of chronic kidney disease, which was first noted in 2019 with a GFR of 53. The GFR has fluctuated over the years, with the most recent value being 49. The patient was unaware of this diagnosis until the current visit. The patient also has a history of hypertension, with a current blood pressure reading of 130/70 mmHg, confirmed manually after a machine error. The patient is on multiple medications, including losartan, which is known to affect kidney function. Although kidney function is stable at this time therefore will continue current medication regimen. Diabetes mellitus is another chronic condition for the patient, with a previous A1c of 7.6%. The patient is on medications such as Jardiance and metoprolol to manage this condition. A1c today 7.0 which has decreased significantly from 7.6 back in December 2024. The patient has a history of gout, managed with allopurinol, which is metabolized through the kidneys. The patient is concerned about the potential impact of medications on kidney function. Although we do not want his gout to flare therefore we will continue this current regimen due to kidneys are stable at this time. The patient also has a history of peripheral neuropathy and cold extremities. The patient reports experiencing cold hands, which may be attributed to poor vasculature. He has been experiencing neuropathy despite being on gabapentin 600 mg three times a day. The patient inquired about increasing the gabapentin dosage to manage his neuropathy symptoms better. It was discussed that the dosage could be increased to 900 mg three times a day, which is within the safe range. [facility] Medical History CKD (chronic kidney disease) Low platelet count Elevated vitamin B12 level (~01/19/25) Erectile dysfunction Peripheral neuropathy Hypertriglyceridemia Elevated ALT measurement Elevated AST (SGOT) IDANIA (acute kidney injury) Arthritis Restless leg syndrome Severe obesity with body mass index (BMI) of 36.0 to 36.9 with serious comorbidity History of pneumonia Hypotestosteronism Gout Coronary artery disease Obstructive sleep apnea Hypertension Mild hypercholesterolemia Type 2 diabetes mellitus with hemoglobin A1c goal of less than 7.0% Atrial fibrillation CHF (congestive heart failure) Surgical History Hx of bilateral cataract extraction History of colonoscopy (~11/2019) History of coronary artery bypass graft Family History Father No problems noted. Mother No problems noted. Social History Housing: House Are you a primary customer care manager to a significant other at home: No Do you presently have visiting nurse or other home services: No Alcohol intake: current Alcohol intake frequency: holidays/special occasions only Alcohol type: beer Patient Tobacco Use Status: Former Tobacco user service: No Current occupational status: retired Cognitive needs: No Hearing needs: No Vision needs: Yes (reading glasses) Questionnaire PHQ-9 Over the last 2 weeks, how often have you been bothered by any of the following problems? 1. Little interest or pleasure in doing things: not at all 2. Feeling down, depressed, or hopeless: not at all 3. Trouble falling or staying asleep, or sleeping too much: not at all 4. Feeling tired or having little energy: not at all 5. Poor appetite or overeating: not at all 6. Feeling bad about yourself - or that you are a failure or have let yourself or your family down: not at all 7. Trouble concentrating on things, such as reading the newspaper or watching television: not at all 8. Moving or speaking so slowly that other people could have noticed. Or the opposite - being so fidgety or restless that you have been moving around a lot more than usual: not at all 9. Thoughts that you would be better off or of hurting yourself in some way: not at all Total score: 0 Depression Screening Interpretation: Negative Depression Screening Done: Yes 20527 - PHQ-9 Billing: Yes Source: Developed by Drs. Juan Palomo, Nedra Anna, Milo Bianchi and colleagues, with an educational elizabeth from [employer]. Thrive Questionnaire Date Thrive assessed: 04/27/25 I am a: Patient What is your living situation today?: I have a steady place to live Within the past 12 months, did the food you bought not last and you didn't have the money to get more?: Never true Within the past 12 months, did you worry whether your food would run out before you got money to buy more?: Never true Do you have trouble paying for medicines?: No Do you have trouble getting transportation to medical appointments?: No Do you have trouble paying your heating and electricity bill?: No Do you have trouble taking care of your child, family member or friend?: No Do you have trouble with day-to-day activities such as bathing, preparing meals, shopping, managing finances, etc.?: No Are you currently unemployed and looking for a job?: No Are you interested in more education?: No Please select the resources that you would like help with: None THRIVE Score: 0 AUDIT C Alcohol Use Questionnaire (AUDIT-C) 1. How often do you have a drink containing alcohol?: Monthly or less 2. How many drinks containing alcohol do you have on a typical day when you are drinking?: 1 or 2 3. How often do you have six or more drinks on one occasion?: Never Total Score: 1 Score Reviewed/Action Taken: No JERSON-7 AMB Questionnaire JERSON-7 Date JERSON - 7 assessed: 04/27/25 Feeling nervous, anxious, or on edge: 0 = Not at all Not being able to stop or control worryin = Not at all Worrying too much about different things: 0 = Not at all Trouble relaxin = Not at all Being so restless that it is hard to sit still: 0 = Not at all Becoming easily annoyed or irritable: 0 = Not at all Feeling afraid as if something awful might happen: 0 = Not at all Total JERSON-7 score (0-4 normal; 5-9 mild; 10-14 moderate; 15-21 severe): 0 Source: Developed by Drs. Juan Palomo, Nedra Anna, Milo Bianchi and colleagues, with an educational elizabeth from [employer]. JERSON-7 Assessment Billing JERSON-7 Assessment Tool: JERSON-7 Assessment 88105 Review of Systems Const Details: - Neurological: Reports neuropathy despite current medication regimen. - Vascular: Reports cold extremities, possibly due to poor vasculature. All systems reviewed & are unremarkable except as noted in HPI and below Physical exam (Primary Care) Vital Signs: Last Vital Signs Temp 97.1 F 04/27/25 09:54 Pulse 48 L 04/27/25 11:33 Resp 16 04/27/25 09:54 BP 130/70 04/27/25 11:33 Pulse Ox 97 04/27/25 09:54 Oxygen Delivery Method Room Air 04/27/25 09:54 Care Plan Goal for BP management: <140/90 at Goal BMI result Body Mass Index 37.2 BMI Assessment/Plan discussion: High BMI High, discussed plan: lifestyle, weight reduction, dietary, physical activity, alcohol moderation and other Tobacco/Smoking Status: Tobacco use Status Tobacco use date assessed 04/27/25 04/27/25 09:59 Patient Tobacco Use Status Former Tobacco user 04/27/25 09:59 Tobacco use type 04/15/25 15:03 PHQ-9: PHQ-9 Score PHQ-9: Total score 0 04/27/25 11:37 Depression Screening Interpretation: Negative Thrive Assessment: Date of Thrive Assessment Date Thrive assessed 04/27/25 04/27/25 09:59 Const Other: Appearance: Alert. Oriented X3. No acute distress. Head: Normal external exam. Normocephalic. Atraumatic. Eyes: Pupils are equal, round, and reactive to light. Extraocular movements intact. Conjunctiva and sclera normal. Eyelids normal. Throat: Pharynx normal. Uvula midline. Moist mucous membranes. Neck: Normal inspection. Neck supple. Full range of motion. Cardiovascular: Normal heart rate and rhythm. Respiratory: No respiratory distress. Painless inspiration. Back: Full range of motion noted. Skin: Skin warm and dry. Normal skin color. Extremities: Extremities exhibit normal range of motion. Neuro: Oriented X 3. No motor deficit. No sensory deficit. Reflexes normal. Results AMB Hemoglobin A1c AMB Hemoglobin A1c 7.0 % Last Edit by Dann Luevano MA on 04/27/25 11:04 Results Reviewed Results Reviewed: Laboratory Last Values Hgb A1c (Clinic) 7.0 % (4.0-6.0) H 04/27/25 10:56 - Labs: CBC normal, GFR fluctuating with a recent value of 49, A1c previously 7.6%. Coding Level of Care Code Est Pt Level 4 (67504) Complex EM visit Add On G2211 Diagnoses Peripheral neuropathy G62.9 CKD (chronic kidney disease) N18.9 Hypertension I10 Type 2 diabetes mellitus with hemoglobin A1c goal of less than 7.0% E11.9 Gout M10.9 Additional Codes JERSON-7 Assessment Billing - JERSON-7 Assessment Tool: JERSON-7 Assessment 74140 ([id number]) PHQ-9 - 92581 - PHQ-9 Billing: Yes ([id number]) Time Spent (min) 60 Assessment & Plan Assessment & Plan (1) Peripheral neuropathy: Code(s): G62.9 - Polyneuropathy, unspecified Category: Medical Plan: The patient is currently on gabapentin 600 mg three times a day for neuropathy, but continues to experience symptoms. It was decided to increase the gabapentin dosage to 900 mg three times a day to better manage the symptoms, as this is within the safe dosage range. (2) CKD (chronic kidney disease): Code(s): N18.9 - Chronic kidney disease, unspecified Category: Medical Plan: The patient has chronic kidney disease with fluctuating GFR values, currently at 49. Referral to a research coordinator was discussed, but the patient declined. It was advised to avoid NSAIDs and monitor kidney function regularly. (3) Hypertension: Code(s): I10 - Essential (primary) hypertension Category: Medical Plan: The patient's blood pressure was measured at 130/70 mmHg. Medication adherence was discussed, and the importance of regular monitoring was emphasized. (4) Type 2 diabetes mellitus with hemoglobin A1c goal of less than 7.0%: Comment: does not check glucose at home-dx ~ age 66-taking Jardiance & Trulicity Code(s): E11.9 - Type 2 diabetes mellitus without complications Category: Medical Plan: The patient has diabetes mellitus with a previous A1c of 7.6%. A1c today 7.0 which has improved. Medications include Jardiance and metoprolol. Regular monitoring of blood glucose levels was recommended. (5) Gout: Code(s): M10.9 - Gout, unspecified Category: Medical Plan: The patient is managing gout with allopurinol. The potential impact of medications on kidney function was discussed, and it was decided to continue current management while monitoring kidney function. Plan Plan Patient was informed and verbally consented to the use of an ambient scribe for clinic note documentation during this visit. 1. Peripheral Neuropathy The patient is currently on gabapentin 600 mg three times a day for neuropathy, but continues to experience symptoms. It was decided to increase the gabapentin dosage to 900 mg three times a day to better manage the symptoms, as this is within the safe dosage range. 2. Cold Extremities The patient reports cold extremities, which may be related to poor vasculature. No specific intervention was discussed for this condition during the visit. 3. Chronic Kidney Disease The patient has chronic kidney disease with fluctuating GFR values, currently at 49. Referral to a research coordinator was discussed, but the patient declined. It was advised to avoid NSAIDs and monitor kidney function regularly. 4. Hypertension The patient's blood pressure was measured at 130/70 mmHg. Medication adherence was discussed, and the importance of regular monitoring was emphasized. 5. Diabetes Mellitus The patient has diabetes mellitus with a previous A1c of 7.6%. A1c today 7.0 which has improved. Medications include Jardiance and metoprolol. Regular monitoring of blood glucose levels was recommended. 6. Gout The patient is managing gout with allopurinol. The potential impact of medications on kidney function was discussed, and it was decided to continue current management while monitoring kidney function. During the visit, I discussed the patient's chronic kidney disease and the importance of monitoring kidney function. I recommended avoiding NSAIDs and considering a nephrology referral, which the patient declined. We reviewed the patient's hypertension and diabetes management, emphasizing medication adherence and regular monitoring. I also addressed the management of gout with allopurinol, considering its impact on kidney function. During the visit, we discussed the patient's ongoing neuropathy symptoms and the possibility of increasing the gabapentin dosage from 600 mg to 900 mg three times a day. The patient was informed that this adjustment is within the safe dosage range and could potentially improve symptom management. Orders: Orders Magnesium Today Z00.00 - Encounter for general adult medical examination without abnormal findings AMB Hemoglobin A1c Today E11.9 - Type 2 diabetes mellitus without complications Basic Metabolic Panel Today Z00.00 - Encounter for general adult medical examination without abnormal findings Medications: New furosemide 80 mg PO QAM 90 tabs 3RF tadalafil (Cialis) administer approximately 30min before sexual activity; do not use more than 1 dose per 24hrs 10 mg PO DAILY PRN 20 tabs 3RF sexual activity empagliflozin (Jardiance) 25 mg PO QAM 90 tabs 3RF allopurinol 300 mg PO BEDTIME 90 tabs 3RF aspirin 81 mg PO QAM 90 tabs 3RF metoprolol tartrate 100 mg PO QAM 90 tabs 3RF pravastatin 80 mg PO BEDTIME 90 tabs 3RF Changed From semaglutide 1 mg (0.75 mL) subcut QWEEK 3 mL 0RF E11.9 - Type 2 diabetes mellitus without complications, E66.01 - Morbid (severe) obesity due to excess calories, E78.00 - Pure hypercholesterolemia, unspecified, E78.1 - Pure hyperglyceridemia, I10 - Essential (primary) hypertension, I25.10 - Atherosclerotic heart disease of [place] coronary artery without angina pectoris, Z68.36 - Body mass index [BMI] 36.0-36.9, adult To semaglutide 0.5 mg (0.736 mL) subcut QWEEK 3 mL 0RF E11.9 - Type 2 diabetes mellitus without complications, E66.01 - Morbid (severe) obesity due to excess calories, E78.00 - Pure hypercholesterolemia, unspecified, E78.1 - Pure hyperglyceridemia, I10 - Essential (primary) hypertension, I25.10 - Atherosclerotic heart disease of [place] coronary artery without angina pectoris, Z68.36 - Body mass index [BMI] 36.0-36.9, adult From furosemide 80 mg PO QAM 90 tabs 3RF To furosemide 40 mg PO BID 180 tabs 3RF 90 days From semaglutide (Ozempic) 0.5 mg (0.736 mL) subcut QWEEK 3 mL 0RF E11.9 - Type 2 diabetes mellitus without complications, E66.01 - Morbid (severe) obesity due to excess calories, E78.00 - Pure hypercholesterolemia, unspecified, E78.1 - Pure hyperglyceridemia, I10 - Essential (primary) hypertension, I25.10 - Atherosclerotic heart disease of [place] coronary artery without angina pectoris, Z68.36 - Body mass index [BMI] 36.0-36.9, adult To semaglutide 1 mg (0.75 mL) subcut QWEEK 3 mL 0RF E11.9 - Type 2 diabetes mellitus without complications, E66.01 - Morbid (severe) obesity due to excess c alories, E78.00 - Pure hypercholesterolemia, unspecified, E78.1 - Pure hyperglyceridemia, I10 - Essential (primary) hypertension, I25.10 - Atherosclerotic heart disease of [place] coronary artery without angina pectoris, Z68.36 - Body mass index [BMI] 36.0-36.9, adult From gabapentin 600 mg (2 x 300 mg) PO TID 90 days 540 caps 3RF To gabapentin 900 mg (3 x 300 mg) PO TID 270 caps 3RF 30 days Refilled gabapentin 600 mg (2 x 300 mg) PO TID 90 days 540 caps 3RF pioglitazone (Actos) 15 mg PO DAILY 90 tabs 3RF losartan 100 mg PO DAILY 90 tabs 3RF apixaban (Eliquis) 5 mg PO BID 180 tabs 3RF 90 days betamethasone dipropionate 0.05% 1 appl topical DAILY PRN 45 grams 3RF itching Discontinued sildenafil (Viagra) administer 30 minutes to 4 hours before activity Discontinued Reason: Doctor's Order 50 mg PO DAILY PRN 20 tabs 1RF sexual activity Patient Instructions: - Increase gabapentin dosage to 900 mg three times a day as discussed. - Monitor for any changes in symptoms and report back if there are concerns. - Monitor blood pressure and blood glucose levels regularly. - Avoid NSAIDs to protect kidney function. - Continue current medications as prescribed and ensure adherence. - Schedule regular follow-up appointments to monitor chronic conditions.
--- OUTSIDE RECORDS SUMMARY | 2025-04-27 09:57 | XMS_ITS | Encounter Summary ---
Author Organization [employer] Address [address] [place] [address] Care Team Providers Care Manager Labor Relations Name Role Phone Unavailable Primary Care Provider Unavailabl e Encounter Details Date Type Department Care Team (Latest Contact Info) Description 05/11/2020 Abstract [facility] CONVERSIONS Dental, Provider, DDS Social History [...]
--- OUTSIDE RECORDS SUMMARY | 2025-04-27 09:57 | XMS_ITS | Clinical Summary ---
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 Phone Unavailable Primary Care Provider [...] Health Maintenance Due Date Last Done Comments Depression Screening 1948 Lipid Panel 1948 Alcohol/Substance Use Screening 1960 Tobacco Screening 1960 DTaP/Tdap/Td Vaccines (1 - Tdap) 1967 Pneumococcal Vaccine: 50+ Ye ars (1 of 1 - PCV) 1998 Zoster Vaccines (1 of 2) 1998 RSV Patients and Pa tients Aged 60 years or older (1 - 1-dose 75+ series) 2023 COVID-19 Vaccine ( - 2023-2 5 season) 2025 Influenza Vaccine (#1) 2025 HIB Vaccines Aged Out No longer eligi [...] patient's age to complete this topic Meningococcal B Vaccine Aged Out No l onger eligible based on patient's age to complete [...]
--- OUTSIDE RECORDS SUMMARY | 2025-04-27 09:58 | XMS_ITS | Clinical Summary ---
Author Organization [employer] [facility] it Address [address] [place] [address] Care Team Providers Care Merchandising Execution Manager Name Role Phone Unavailable Primary Care Provider Unavailabl e Encounters Date Type Department Care Team Description 02/02/2025 Telephone [facility] Cardiology [facility] [address] [place] [address] Physician, Pcp Unknown from Last 3 Months Social History Tobacco Use Types Packs/Day Years Used Date Smoking Tobacco: Never Assessed Sex and Gender Information Value Date Recorded Sex Assigned at Not on file Legal Sex Male 11:02 AM EDT Gender Identity Not on file Sexual Orientation Not on file Plan of Treatment Health Maintenance Due Date Last Done Comments DTaP,Tdap,and Td Vaccines (1 - Tdap) 1967 Pneumococcal Vaccine: 50+ Ye ars (1 of 1 - PCV) 1998 Zoster Vaccines (1 of 2) 1998 RSV Immunization Adult Patie nts (1 - 1-dose 75+ series) 2023 Cholesterol Screening (Lipid Panel) 02/15/2024 Falls Risk Assessment 02/15/2024 Hepatitis C Screening 02/15/2024 Social Influencers of Health Screening 02/15/2024 Depression Screening 07/16/2024 COVID-19 Vaccine ( - 2023-2 5 season) [...] on patient's age to complete this topic MMR Vaccines Aged Out No longer eligi ble based on patient's age to complete this topic Meningococcal ACWY Vaccine Aged Out N o longer eligible based on patient's age to complete this topic Meningococcal B Vaccine Aged Out No l onger eligible based on patient's age to complete this topic RSV Immunization Patients Un arnulfo 20 months Aged Out No longer eligible b ased on patient's age to complete this topic Varicella Vaccines Aged Out No longer eligible based on patient's age to complete this topic
[2025-04-27 11:33] VITALS: BP 130/70; PULSE 48
== END 2025-04-27 11:13 | disposition home or self-care (01) ==
LOC: HO.HMCSH 09:51
PROVIDERS: PCP Internal Medicine; Visit Provider Physician Assistant Medical
DX: I12.9 Hypertensive chronic kidney disease with stage 1 through stage 4 chronic kidney disease, or unspecified chronic kidney disease (principal); G62.9 Polyneuropathy, unspecified; N18.9 Chronic kidney disease, unspecified; E11.42 Type 2 diabetes mellitus with diabetic polyneuropathy; M10.9 Gout, unspecified

== ENCOUNTER → 2025-04-27 09:51 | Outpatient (BNVA) | payer MEDICARE, MEDICAID, SELFPAY | PROVIDERS: PCP Internal Medicine; Visit Provider Physician Assistant Medical | DX: E11.40 Type 2 diabetes mellitus with diabetic neuropathy, unspecified (principal); I12.9 Hypertensive chronic kidney disease with stage 1 through stage 4 chronic kidney disease, or unspecified chronic kidney disease; E11.22 Type 2 diabetes mellitus with diabetic chronic kidney disease; N18.9 Chronic kidney disease, unspecified; M10.9 Gout, unspecified; Z79.899 Other long term (current) drug therapy; Z13.31 Encounter for screening for depression; Z13.39 Encounter for screening examination for other mental health and behavioral disorders | CPT/HCPCS: 83036; 96127; 99212 ==